=== PATIENT | female | born 1945 | race African-American/Black ===

== ENCOUNTER 2020-11-28 09:19 | Outpatient (REF) | payer MEDICARE, SELFPAY ==
[2020-11-28 11:42] LABS: Hematocrit 40.4 % (37-47); Hemoglobin 12.6 g/dl (12.0-16.0)
[2020-11-28 11:58] LABS: Alanine Aminotransferase 19 U/L (0-31); Albumin Level 4.3 g/dL (3.5-5.0); Alkaline Phosphatase 87 U/L (39-117); Anion Gap 14 (12-20); Aspartate Amino Transferase 22 U/L (5-31); Bilirubin Direct 0.4 mg/dL (0.0-0.5); Bilirubin Total 0.8 mg/dL (0.0-1.0); Blood Urea Nitrogen 15 mg/dL (9-16); Calcium 8.8 mg/dL (8.4-10.2); Carbon Dioxide 27 mmol/L (22-29); Chloride 108 mmol/L (96-108); Estimated Glomerular Filt Rate 55; Glucose Fasting 107 mg/dL (60-99); Potassium 4.2 mmol/l (3.3-5.1); Sodium 145 mmol/L (135-145); Total Protein 7.7 g/dL (6.5-8.0)
[2020-11-29 09:53] LABS: LDL Cholesterol Direct 98 mg/dL (<100)
== END 2020-11-28 09:20 | disposition home or self-care (01) ==
LOC: HO.HMGCLDS 09:19
PROVIDERS: PCP Internal Medicine; Visit Provider Internal Medicine
DX: E78.9 Disorder of lipoprotein metabolism, unspecified (principal); I10 Essential (primary) hypertension
CPT/HCPCS: 36415; 80048; 80076; 83721; 85014; 85018

== ENCOUNTER 2021-04-02 08:54 | Outpatient (REF) | payer MEDICARE, SELFPAY ==
[2021-04-02 12:17] LABS: Alanine Aminotransferase 26 U/L (0-31); Albumin Level 4.3 g/dL (3.5-5.0); Alkaline Phosphatase 92 U/L (39-117); Anion Gap 15 (12-20); Aspartate Amino Transferase 26 U/L (5-31); Bilirubin Total 0.8 mg/dL (0.0-1.0); Blood Urea Nitrogen 17 mg/dL (9-16); Calcium 9.2 mg/dL (8.4-10.2); Carbon Dioxide 24 mmol/L (22-29); Chloride 109 mmol/L (96-108); Estimated Glomerular Filt Rate 46; Glucose Random 102 mg/dL (60-115); Potassium 4.6 mmol/L (3.3-5.1); Sodium 143 mmol/L (135-145); Total Protein 7.7 g/dL (6.5-8.0)
[2021-04-02 12:58] LABS: Estimated Average Glucose 108 mg/dL; Hemoglobin A1c % 5.4 %
== END 2021-04-02 08:55 | disposition home or self-care (01) ==
LOC: HO.HMGCLDS 08:54
PROVIDERS: PCP Internal Medicine; Visit Provider Internal Medicine
DX: E66.01 Morbid (severe) obesity due to excess calories (principal); E78.9 Disorder of lipoprotein metabolism, unspecified; I10 Essential (primary) hypertension
CPT/HCPCS: 36415; 80053; 83036

== ENCOUNTER 2021-07-16 11:53 | Outpatient (REF) | payer MEDICARE, SELFPAY ==
--- NOTE | ~2021-07-16 | MM_ITS ---
EXAMINATION: MM SCREENING DIGITAL BREAST TOMOSYNTHESIS, BILATERAL CLINICAL INFORMATION: Screening. Asymptomatic. The lifetime risk of breast cancer based on the Tyrer-Cuzick Model is 3%. COMPARISON: None (current study represents new baseline exam). TECHNIQUE: Digital breast tomosynthesis is performed in both the craniocaudal and mediolateral oblique views along with computer-aided detection (CAD). Synthesized 2D images are generated from the tomosynthesis. FINDINGS: There are scattered areas of fibroglandular density (ACR BI-RADS breast composition Category b). There are no significant masses, abnormal calcifications, or other abnormalities. There is fine fibronodular parenchymal pattern retroareolar region. There is no significant mass or architectural abnormality. No abnormal calcifications. Scattered round and vascular calcifications are present. The axilla and skin contours are unremarkable. MM/MM tomosynthesis screening BI IMPRESSION: No mammographic evidence of malignancy. ASSESSMENT: BI-RADS 2: Benign RECOMMENDATION: Routine annual mammography screening. This patient's information was entered into a reminder system with a target due date for their next mammogram.
== END 2021-07-16 11:54 | disposition home or self-care (01) ==
LOC: HO.MAMMO 11:53
PROVIDERS: PCP Internal Medicine; Visit Provider Internal Medicine
DX: Z12.31 Encounter for screening mammogram for malignant neoplasm of breast (principal)
CPT/HCPCS: 77063; 77067

== ENCOUNTER 2021-09-14 11:26 | Outpatient (REF) | payer MEDICARE, SELFPAY ==
[2021-09-14 14:18] LABS: Alanine Aminotransferase 15 U/L (0-31); Albumin Level 4.2 g/dL (3.5-5.0); Alkaline Phosphatase 82 U/L (39-117); Anion Gap 14 (12-20); Aspartate Amino Transferase 20 U/L (5-31); Bilirubin Total 0.7 mg/dL (0.0-1.0); Blood Urea Nitrogen 8 mg/dL (9-16); Calcium 9.1 mg/dL (8.4-10.2); Carbon Dioxide 28 mmol/L (22-29); Chloride 108 mmol/L (96-108); Estimated Glomerular Filt Rate 56; Glucose Random 103 mg/dL (60-115); Potassium 4.2 mmol/L (3.3-5.1); Sodium 146 mmol/L (135-145); Total Protein 7.7 g/dL (6.5-8.0)
[2021-09-15 09:46] LABS: LDL Cholesterol Direct 133 mg/dL (<100)
== END 2021-09-14 11:27 | disposition home or self-care (01) ==
LOC: HO.HMGCLDS 11:26
PROVIDERS: PCP Internal Medicine; Visit Provider Internal Medicine
DX: E78.9 Disorder of lipoprotein metabolism, unspecified (principal); I10 Essential (primary) hypertension
CPT/HCPCS: 36415; 80053; 83721

== ENCOUNTER 2022-05-22 09:50 | Outpatient (REF) | payer MEDICARE, SELFPAY ==
[2022-05-22 11:35] LABS: MANUAL DIFF FLAG NO
[2022-05-22 11:38] LABS: Basophils Percent Auto 0.4 % (0-2); Eosinophils Absolute Auto 0.1 X10*3/uL (0.0-0.4); Eosinophils Percent Auto 1.1 % (0-4); Hematocrit 36.7 % (37.0-47.0); Hemoglobin 11.6 g/dl (12.0-16.0); Imm Gran Abs Auto 0.02 X10*3/uL (0.00-0.03); Imm Gran Pct Auto 0.4 % (0.0-0.4); Lymphocytes Absolute Auto 1.5 X10*3/uL (1.2-4.9); Lymphocytes Percent Auto 32.4 % (20-40); Mean Corpuscular HGB Conc 31.6 g/dl (31.0-35.0); Mean Corpuscular Hemoglobin 28.6 pg (27.0-33.0); Mean Corpuscular Volume 90.6 fL (80.0-98.0); Mean Platelet Volume 12.5 fL (9.4-12.3); Monocytes Absolute Auto 0.5 X10*3/uL (0.1-1.2); Monocytes Percent Auto 10.6 % (2-11); Neutrophils Absolute Auto 2.6 x10*3/uL (2.0-8.3); Neutrophils Percent Auto 55.1 % (45-73); Platelet Count 254 X10*3/uL (160-400); Red Blood Count 4.05 X10*6/uL (4.20-5.50); Red Cell Distribution Width 14.1 % (11.0-16.0); White Blood Count 4.7 X10*3/uL (4.8-10.8)
[2022-05-22 11:55] LABS: Alanine Aminotransferase 18 U/L (0-31); Albumin Level 4.4 g/dL (3.5-5.0); Alkaline Phosphatase 85 U/L (39-117); Anion Gap 12 (12-20); Aspartate Amino Transferase 25 U/L (5-31); Bilirubin Total 0.8 mg/dL (0.0-1.0); Blood Urea Nitrogen 17 mg/dL (9-16); Calcium 9.2 mg/dL (8.4-10.2); Carbon Dioxide 23 mmol/L (22-29); Chloride 112 mmol/L (96-108); Estimated Glomerular Filt Rate 35; Glucose Random 109 mg/dL (60-115); Potassium 4.1 mmol/L (3.3-5.1); Sodium 143 mmol/L (135-145); Total Protein 7.9 g/dL (6.5-8.0)
[2022-05-24 05:02] LABS: LDL Cholesterol Direct 72 mg/dL (<100)
== END 2022-05-22 09:51 | disposition home or self-care (01) ==
LOC: HO.HMGCLDS 09:50
PROVIDERS: PCP Internal Medicine; Visit Provider Internal Medicine
DX: Z00.01 Encounter for general adult medical examination with abnormal findings (principal); I10 Essential (primary) hypertension; E78.9 Disorder of lipoprotein metabolism, unspecified
CPT/HCPCS: 36415; 80053; 83721; 84443; 85025

== ENCOUNTER 2022-06-21 10:41 | Outpatient (REF) | payer MEDICARE, SELFPAY ==
[2022-06-21 12:18] LABS: Anion Gap 16 (12-20); Blood Urea Nitrogen 12 mg/dL (9-16); Carbon Dioxide 21 mmol/L (22-29); Chloride 106 mmol/L (96-108); Estimated Glomerular Filt Rate 43; Potassium 3.9 mmol/L (3.3-5.1); Sodium 139 mmol/L (135-145)
== END 2022-06-21 10:42 | disposition home or self-care (01) ==
LOC: HO.HMGCLDS 10:41
PROVIDERS: PCP Internal Medicine; Visit Provider Internal Medicine
DX: R79.89 Other specified abnormal findings of blood chemistry (principal)
CPT/HCPCS: 36415; 80051; 82565; 84520

== ENCOUNTER → 2022-07-30 09:13 | Outpatient (BNVA) | payer MEDICARE, SELFPAY | PROVIDERS: PCP Internal Medicine; Visit Provider Nurse Practitioner Family | DX: Z12.11 Encounter for screening for malignant neoplasm of colon (principal) | CPT/HCPCS: 99202 ==

== ENCOUNTER 2022-11-27 09:09 | Day surgery (SDC) | payer MEDICARE, SELFPAY ==
[2022-11-22 14:13] VITALS: BMI 33.2
--- NOTE | 2022-11-26 14:21 | P.CONAN_ITS ---
Documented by User: Barb Garcia NP 11/26/22 14:21 HPI - Anesthesia Eval Consult details Narrative: 77yo F for Colonoscopy, screening PMFSH Active Problems Active Problems: All Active Problems (Updated 11/22/22 @ 14:16 by Rosina Garcia RN) Hypertension, essential (Acute) Lipid disorder (Acute) Breast screening (Acute) Morbid obesity (Acute) Swelling of both lower extremities (Acute) Uncontrolled hypertension (Acute) Encounter for general adult medical examination with abnormal findings (Acute) Balance disorder (Acute) Colon cancer screening (Acute) Elevated serum creatinine (Acute) Obesity due to excess calories (Acute) Past Medical History Medical History (Updated 11/22/22 @ 14:16 by Rosina Garcia RN) Elevated cholesterol Gastric ulcer HTN (hypertension) Surgical History Surgical History (Updated 11/22/22 @ 14:13 by Rosina Garcia RN) History of surgery Social History Social History Housing: Apartment Alcohol intake: current Alcohol intake frequency: 3 or more drinks per day Alcohol type: beer Patient Tobacco Use Status: Former Tobacco user Quit Date: age 27 Tobacco use type: Cigarette Years Smoked: 1 e-Cigarette/Vaping Use: Never Used Use of substances other than those prescribed or required for medical reasons: No Have you been hit, kicked, punched, or otherwise hurt by someone within the past year? If so, by whom?: No Are you DNR?: No Advance Directives: No Advance Directives Information Provided: Yes (brochure mailed) Advance Directives on File: No Recently lost weight without trying: No Eating poorly because of decreased appetite: No Nutrition Risks: Surgical patient >75years Poor oral hygiene: No Current occupational status: retired Cognitive needs: No Hearing needs: No Vision needs: Yes Meds Allergies Allergy/AdvReac Type Severity Reaction Status Date / Time No Known Allergies Allergy Verified 08/21/22 10:12 Exam Exam Date and Time: November 26, 2022 1421 Height,Weight and Vital Signs: Height 5 ft 7 in Weight 96.162 kg Pertinent Lab Results Pertinent Lab Results: Laboratory Tests 05/22/22 06/21/22 09:55 10:45 WBC 4.7 L Hgb 11.6 L Hct 36.7 L Plt Count 254 Sodium 139 Potassium 3.9 Chloride 106 Carbon Dioxide 21 L BUN 12 Creatinine 1.21 Assessment and Plan Assessment Anesthesia Assessment: Chart Reviewed Documented by User: Swathi Thao MD 11/27/22 10:55 COUNT INCLUDES THE [facility] Past Medical History Medical History (Updated 11/22/22 @ 14:16 by Rosina Garcia RN) Elevated cholesterol Gastric ulcer HTN (hypertension) Family History Family history of problems with anesthesia: No Surgical History Surgical History (Updated 11/22/22 @ 14:13 by Rosina Garcia RN) History of surgery History of Problems with Anesthesia: No Social History Social History Housing: Apartment Alcohol intake: current Alcohol intake frequency: 3 or more drinks per day Alcohol type: beer Patient Tobacco Use Status: Former Tobacco user Quit Date: age 27 Tobacco use type: Cigarette Years Smoked: 1 e-Cigarette/Vaping Use: Never Used Use of substances other than those prescribed or required for medical reasons: No Have you been hit, kicked, punched, or otherwise hurt by someone within the past year? If so, by whom?: No Are you DNR?: No Advance Directives: No Advance Directives Information Provided: Yes (brochure mailed) Advance Directives on File: No Recently lost weight without trying: No Eating poorly because of decreased appetite: No Nutrition Risks: Surgical patient >75years Poor oral hygiene: No Current occupational status: retired Cognitive needs: No Hearing needs: No Vision needs: Yes Meds Allergies Allergy/AdvReac Type Severity Reaction Status Date / Time No Known Allergies Allergy Verified 08/21/22 10:12 Exam Airway Mallampati Class: III (Multiple missing teeth nithing loose, small mouth opening) TM Dist: >3cm Neck ROM: Full Heart: rrr Lungs: cta Assessment and Plan Assessment Anesthesia Assessment: Anesthesia Plan Discussed and Chart Reviewed Final Anesthetic Review Family History of Problems with Anesthesia: No History of Problems with Anesthesia: No NPO: Yes ASA Class: III Final Preanesthetic Review: No Changes in Pt Med Stat, Meds/Allgs Chart Reviewed and Consent Obtained/Reviewed Patient Risk: Intermediate Procedure Risk: Intermediate Anesthetic Plan Anesthetic Plan: MAC:
[2022-11-27 09:43] VITALS: BMI 32.8
[2022-11-27 09:44] VITALS: BP 187/100; PULSE 92; RESP 18; TEMP 37; O2SAT 97
[2022-11-27] MEDS: Lactated Ringers 1,000 ML 100 ML IVCONT (10:04)
--- NOTE | 2022-11-27 11:40 | MHC.SHP ---
Pre-Procedural Eval Section A Date of Service: 11/27/22 Section B Chief Complaint: Encounter for screening for malignant neoplasm of Relevant Family History (Specify if Yes): No Relevant Social History: None Present Medications: see Short Stay Collaborative assessment Medical History: Significant History (Elevated cholesterol Gastric ulcer HTN (hypertension)) History of Previous Operations: Relevant previous surgery/procedure and date(s) (History of surgery) Allergies: Allergies Allergy/AdvReac Type Severity Reaction Status Date / Time No Known Allergies Allergy Verified 08/21/22 10:12 Review of Systems Sugical H&P ROS: Negative: Constitution, Cardiovascular, Respiratory, Neurological, Psychiatric, Hem-Onc, Allergic/Immunologic, Gastrointestinal, Genitourinary, Musculoskeletal, Integumentary, Endocrine and Eyes/Ears/Nose/Throat Exam Surgical H&P Exam: Normal: HEENT, Normal: Heart, Normal: Lungs, Normal: Extremities, Normal: Abdomen, Normal: Skin and Normal: Neurological Plan Diagnosis/Plan: Unchanged I have reviewed the history and physical and performed a pertinent physical examination on my patient. No changes have occurred unless specified. Time Spent With Patient Time: Total time managing care of this patient today ____ minutes.
--- NOTE | 2022-11-27 11:42 | P.OP_ITS ---
Operative Note Operative Note Date of Service: 11/27/22 Narrative: Operative Information Procedure Description: Colonoscopy Indication: screening Anesthesia: MAC COLONOSCOPY Instrument: Olympus variable stiffness pediatric scope 190L Colonoscopy Monitoring: Vital signs and clinical assessment, continuous EKG monitoring, Pulse oximetry, Carbon Dioxide monitoring and blood pressure monitoring were done throughout the procedure. Colon withdrawal time was 8 minutes. Procedure: The patient was placed in the left lateral decubitis position and pre-procedure medications were administered. After a digital rectal examination of the ano-rectum, the video colonoscope was inserted into the rectum and advanced through the colon to the cecum/TI. The colonoscope was slowly withdrawn in a retrograde panoramic fashion and the colon mucosa was carefully examined including a retroflexed view of the rectum. Findings and interventions are described below. Procedure Difficulty: difficult due to looping Findings: Terminal Ileum-not intubated due to looping Cecum:normal Ascending Colon: normal Transverse Colon -normal Descending Colon:normal Sigmoid Colon: mild diverticulosis Rectum: Retroflexion with small internal hemorrhoids, grade I Anorectum - normal Colon preparation: [place] Bowel Preparation Scale Right colon; 2 Transverse colon: 2 Left colon; 2 (0 = Unprepared colon segment with mucosa not seen due to solid stool that cannot be cleared. 1 = Portion of mucosa of the colon segment seen, but other areas of the colon segment not well seen due to staining, residual stool and/or opaque liquid. 2 = Minor amount of residual staining, small fragments of stool and/or opaque liquid, but mucosa of colon segment seen well. 3 = Entire mucosa of colon segment seen well with no residual staining, small fragments of stool or opaque liquid) Impression and Post Procedure Diagnosis: internal hemorrhoids diverticular disease Plan: High fiber diet leaflet Avoid straining at stool, epsom salts and sitz bath, anusol supps or cream Repeat Colonoscopy in 10 years if health allows otherwise this is her last screening colonoscopy. Can be earlier if clinically indicated for other reasons Above findings were reviewed with the patient and relevant handouts were provided if indicated.
[2022-11-27 12:15] VITALS: BP 177/85; PULSE 88; RESP 16; TEMP 36.2; O2SAT 98
[2022-11-27 12:30] VITALS: BP 164/81; PULSE 84; RESP 16; TEMP 36.2; O2SAT 98
== END 2022-11-27 13:05 | disposition home or self-care (01) ==
PROVIDERS: PCP Internal Medicine; Visit Provider Internal Medicine Gastroenterology
PROC: 0DJD8ZZ Inspection of Lower Intestinal Tract, Via Natural or Artificial Opening Endoscopic (ICD-10-PCS; CPT 45378; principal; 2022-11-27 11:10)
DX: Z12.11 Encounter for screening for malignant neoplasm of colon (principal); K57.30 Diverticulosis of large intestine without perforation or abscess without bleeding; K64.0 First degree hemorrhoids; Z87.11 Personal history of peptic ulcer disease; I10 Essential (primary) hypertension; E78.00 Pure hypercholesterolemia, unspecified; Z79.899 Other long term (current) drug therapy; Z87.891 Personal history of nicotine dependence
CPT/HCPCS: G0121; J2405

== ENCOUNTER 2022-12-04 12:12 | Outpatient (REF) | payer MEDICARE, SELFPAY ==
[2022-12-04 14:01] LABS: MANUAL DIFF FLAG NO
[2022-12-04 14:09] LABS: Basophils Percent Auto 0.5 % (0-2); Eosinophils Absolute Auto 0.1 X10*3/uL (0.0-0.4); Eosinophils Percent Auto 2.4 % (0-4); Hematocrit 37.5 % (37.0-47.0); Hemoglobin 11.9 g/dl (12.0-16.0); Imm Gran Abs Auto 0.01 X10*3/uL (0.00-0.03); Imm Gran Pct Auto 0.2 % (0.0-0.4); Lymphocytes Absolute Auto 1.7 X10*3/uL (1.2-4.9); Lymphocytes Percent Auto 29.7 % (20-40); Mean Corpuscular HGB Conc 31.7 g/dl (31.0-35.0); Mean Corpuscular Hemoglobin 27.2 pg (27.0-33.0); Mean Corpuscular Volume 85.6 fL (80.0-98.0); Mean Platelet Volume 13.2 fL (9.4-12.3); Monocytes Absolute Auto 0.5 X10*3/uL (0.1-1.2); Monocytes Percent Auto 8.9 % (2-11); Neutrophils Absolute Auto 3.4 x10*3/uL (2.0-8.3); Neutrophils Percent Auto 58.3 % (45-73); Platelet Count 229 X10*3/uL (160-400); Red Blood Count 4.38 X10*6/uL (4.20-5.50); Red Cell Distribution Width 14.2 % (11.0-16.0); White Blood Count 5.8 X10*3/uL (4.8-10.8)
[2022-12-04 14:32] LABS: Alanine Aminotransferase 20 U/L (0-31); Albumin Level 4.3 g/dL (3.5-5.0); Alkaline Phosphatase 98 U/L (39-117); Anion Gap 11 (12-20); Aspartate Amino Transferase 21 U/L (5-31); Bilirubin Total 0.8 mg/dL (0.0-1.0); Blood Urea Nitrogen 16 mg/dL (9-16); Calcium 9.4 mg/dL (8.4-10.2); Carbon Dioxide 30 mmol/L (22-29); Chloride 104 mmol/L (96-108); Estimated Glomerular Filt Rate 49; Glucose Random 99 mg/dL (60-115); Potassium 4.1 mmol/L (3.3-5.1); Sodium 141 mmol/L (135-145); Total Protein 7.7 g/dL (6.5-8.0)
[2022-12-05 16:03] LABS: LDL Cholesterol Direct 64 mg/dL (<100)
== END 2022-12-04 12:13 | disposition home or self-care (01) ==
LOC: HO.HMGCLDS 12:12
PROVIDERS: PCP Internal Medicine; Visit Provider Internal Medicine
DX: E66.09 Other obesity due to excess calories (principal); I10 Essential (primary) hypertension; R79.89 Other specified abnormal findings of blood chemistry; E78.5 Hyperlipidemia, unspecified
CPT/HCPCS: 36415; 80053; 83721; 85025

== ENCOUNTER 2023-08-08 13:11 | Outpatient (AMB) | payer MEDICARE, SELFPAY ==
--- NOTE | 2023-08-08 13:21 | MHC.PC.OV ---
Vital Signs 08/08/23 13:22 Height 5 ft 7 in Weight 203 lb 4 oz BMI 31.8 BP 150/62 H Blood Pressure Location Rt brachial Position Sitting Pulse 100 Pulse Source Pulse Oximeter Pulse Oximetry (%) 97 Oxygen Delivery Method Room Air Intake Visit Reasons: Annual Physical Allergies No Known Allergies Allergy (Verified 08/08/23 13:22) Medication List - Last Reconciled 08/08/23 by Silvia Marcial MD atorvastatin 10 mg PO DAILY 90 days bisacodyl (Dulcolax (bisacodyl)) 10 mg (2 x 5 mg) PO ONCE 1 day [Blood pressure monitor As directed] irbesartan-hydrochlorothiazide 300-12.5 mg 1 tab PO DAILY metoprolol succinate ER 100 mg PO DAILY 90 days nifedipine ER 90 mg PO DAILY 90 days Tobacco use date assessed: 08/08/23 Fall risk assessment: 1 Fall in past year Last assessed Fall Risk: 08/08/23 Dental Screening Dental Screen Date: 08/08/23 Did you have a dental visit in the last 12 months?: No Did you have a dental problem in the last 6 months where you did not have access to dental care?: No Was dental information given to patient?: Patient declined HPI Annual Physical HPI Details Patient is 78 year female came in today for physical examination Due for mammogram order placed Patient has not seen OBGYN in years, I have placed a referral for evaluation Colonoscopy appointment was made last year Blood pressure is slightly elevated today was 110 x 64 last visit review continue to observe Medications refills sent. BMI is 31.8 need to lose weight Patient is also complaining of feeling her burning at the bottom of her feet Her balance was off today She will need EMG nerve conduction study down the road patient does not drive and is dependent on her daughter Labs to be done today Follow-up 3 months [facility] Medical History Gastric ulcer Elevated cholesterol HTN (hypertension) Surgical History Hx of colonoscopy History of surgery Social History Housing: Apartment Alcohol intake: current Alcohol intake frequency: 3 or more drinks per day Alcohol type: beer Patient Tobacco Use Status: Former Tobacco user Quit Date: age 27 Tobacco use type: Cigarette Years Smoked: 1 e-Cigarette/Vaping Use: Never Used service: No Current occupational status: retired Cognitive needs: No Hearing needs: No Vision needs: Yes Questionnaire Thrive Questionnaire Date Thrive assessed: 04/04/23 AUDIT C Alcohol Use Questionnaire (AUDIT-C) 1. How often do you have a drink containing alcohol?: Never 3. How often do you have six or more drinks on one occasion?: Never Total Score: 0 Score Reviewed/Action Taken: Yes SAY-7 AMB Questionnaire SAY-7 Date SAY - 7 assessed: 04/04/23 Source: Developed by Drs. Juan Dooley, Nadya Oshea, Nico Rothman and colleagues, with an educational renée from [employer]. Review of Systems Const Denies chills, Denies fever(s) and Denies headache(s) Eyes Denies blurry vision ENT Denies headache(s), Denies nasal discharge, Denies nasal obstruction, Denies odynophagia and Denies sinus pain Card Denies chest pain at rest and Denies chest pain with activity Resp Denies cough and Denies hemoptysis GI Denies diarrhea, Denies odynophagia, Denies vomiting and Denies hematemesis Reports as per HPI Musc Denies abnormal gait Skin/Breast Reports as per HPI Neuro Denies Neuro-related abnormal movements, Denies Abnormal speech present, Denies abnormal gait and Denies headache(s) Psych Denies mood swings and Denies paranoia Endo Reports as per HPI Félix/Lymph Reports as per HPI Aller/Immun Reports as per HPI Physical exam (Primary Care) Vital Signs: Last Vital Signs Pulse 100 08/08/23 13:22 BP 150/62 H 08/08/23 13:22 Pulse Ox 97 08/08/23 13:22 Oxygen Delivery Method Room Air 08/08/23 13:22 BMI result Body Mass Index 31.8 Tobacco/Smoking Status: Tobacco use Status Tobacco use date assessed 08/08/23 08/08/23 13:24 Patient Tobacco Use Status Former Tobacco user 08/08/23 13:24 Tobacco use type Cigarette 08/08/23 13:24 e-Cigarette/Vaping Use Never Used 08/08/23 13:24 Thrive Assessment: Date of Thrive Assessment Date Thrive assessed 04/04/23 08/08/23 13:24 Const General: cooperative, comfortable and no acute distress Orientation/consciousness: patient oriented x3 HENMT Head: Yes normocephalic and Yes atraumatic Eyes General: appearance normal, both eyes and all related structures Pupils: Equal, round and reactive pupils present EOM: EOMs intact bilaterally Neck Neck: Yes supple and No lymphadenopathy Thyroid: Thyroid normal Lymphatic: no lymphadenopathy noted Chest Breast/axilla palpation: normal palpation of the breasts Resp Effort & Inspection: normal respiratory effort and able to speak in complete sentences Auscultation: clear to auscultation bilaterally Cardio Heart sounds: S1 normal heart sound present and S2 normal heart sound present GI Palpation (GI): Soft to palpation and nontender Auscultation: normal bowel sounds General: Yes no CVA tenderness Back/Spine/Pelvis Back: no CVA tenderness Skin General skin exam: elasticity normal and turgor normal Neuro General: patient oriented x3 and gait normal Cranial nerves: Yes Equal, round and reactive pupils present Speech: No Abnormal speech present Extrem General: Yes normal exam except as noted and No edema Assessment and Plan Assessment & Plan (1) Encounter for general adult medical examination with abnormal findings: Code(s): Z00.01 - Encounter for general adult medical examination with abnormal findings (2) Lipid disorder: Code(s): E78.9 - Disorder of lipoprotein metabolism, unspecified (3) Hypertension, essential: Code(s): I10 - Essential (primary) hypertension (4) Obesity due to excess calories: Code(s): E66.09 - Other obesity due to excess calories Qualifiers: Body mass index: BMI 31.0-31.9 Obesity classification: adult class 1 (BMI 30 - 34.9) Serious obesity comorbidity presence: with serious comorbidity Qualified Code(s): E66.09 - Other obesity due to excess calories; Z68.31 - Body mass index [BMI] 31.0-31.9, adult (5) Paresthesia of lower extremity: Code(s): R20.2 - Paresthesia of skin Plan Patient is 78 year female came in today for physical examination Due for mammogram order placed Patient has not seen OBGYN in years, I have placed a referral for evaluation Colonoscopy appointment was made last year Blood pressure is slightly elevated today was 110 x 64 last visit review continue to observe Medications refills sent. BMI is 31.8 need to lose weight Patient is also complaining of feeling her burning at the bottom of her feet Her balance was off today She will need EMG nerve conduction study down the road patient does not drive and is dependent on her daughter Labs to be done today Follow-up 3 months Orders: Orders Vitamin B12 Today R20.2 - Paresthesia of skin Complete Blood Count Auto Diff Today E66.09 - Other obesity due to excess calories, E78.9 - Disorder of lipoprotein metabolism, unspecified, I10 - Essential (primary) hypertension, Z00.01 - Encounter for general adult medical examination with abnormal findings Comprehensive Met. Panel Today E78.9 - Disorder of lipoprotein metabolism, unspecified, I10 - Essential (primary) hypertension, Z00.01 - Encounter for general adult medical examination with abnormal findings LDL Cholesterol Direct Today E78.9 - Disorder of lipoprotein metabolism, unspecified, I10 - Essential (primary) hypertension, Z00.01 - Encounter for general adult medical examination with abnormal findings MM tomosynthesis screening BI Today Z12.31 - Encounter for screening mammogram for malignant neoplasm of breast Vitamin D 25-OH (D2 and D3) Today R20.2 - Paresthesia of skin Referrals [employer] Referral Z01.419 - Encounter for gynecological examination (general) (routine) without abnormal findings Medications: Refilled nifedipine ER 90 mg PO DAILY 90 tabs 1RF 90 days metoprolol succinate ER 100 mg PO DAILY 90 tabs 1RF 90 days I10 - Essential (primary) hypertension irbesartan-hydrochlorothiazide 300-12.5 mg 1 tab PO DAILY 90 tabs 1RF I10 - Essential (primary) hypertension atorvastatin 10 mg PO DAILY 90 tabs 1RF 90 days E78.9 - Disorder of lipoprotein metabolism, unspecified Coding Level of Care Code Est Pt Prev Care >65y(75394) Diagnoses Encounter for general adult medical examination with abnormal findings Z00.01 Lipid disorder E78.9 Hypertension, essential I10 Class 1 obesity due to excess calories with serious comorbidity and body mass index (BMI) of 31.0 to 31.9 in adult E66.09; Z68.31 Body mass index: BMI 31.0-31.9 Obesity classification: adult class 1 (BMI 30 - 34.9) Serious obesity comorbidity presence: with serious comorbidity Paresthesia of lower extremity R20.2
[2023-08-08 13:22] VITALS: BP 150/62; PULSE 100; O2SAT 97; BMI 31.8
== END 2023-08-08 13:39 | disposition home or self-care (01) ==
PROVIDERS: Visit Provider Internal Medicine
DX: Z00.00 Encounter for general adult medical examination without abnormal findings (principal); I10 Essential (primary) hypertension; Z68.31 Body mass index [BMI] 31.0-31.9, adult; E78.9 Disorder of lipoprotein metabolism, unspecified; E66.09 Other obesity due to excess calories; R20.2 Paresthesia of skin
CPT/HCPCS: 99397

== ENCOUNTER 2023-08-08 13:41 | Outpatient (REF) | payer MEDICARE, SELFPAY ==
[2023-08-08 15:57] LABS: MANUAL DIFF FLAG NO
[2023-08-08 16:07] LABS: Basophils Percent Auto 0.3 % (0-2); Eosinophils Percent Auto 0.7 % (0-4); Hemoglobin 11.2 g/dl (12.0-16.0); Imm Gran Abs Auto 0.07 X10*3/uL (0.00-0.03); Imm Gran Pct Auto 1.1 % (0.0-0.4); Lymphocytes Absolute Auto 1.8 X10*3/uL (1.2-4.9); Lymphocytes Percent Auto 29.9 % (20-40); Mean Corpuscular Hemoglobin 28.1 pg (27.0-33.0); Mean Corpuscular Volume 87.7 fL (80.0-98.0); Mean Platelet Volume 11.1 fL (9.4-12.3); Monocytes Absolute Auto 0.5 X10*3/uL (0.1-1.2); Monocytes Percent Auto 7.7 % (2-11); Neutrophils Absolute Auto 3.7 x10*3/uL (2.0-8.3); Neutrophils Percent Auto 60.3 % (45-73); Platelet Count 345 X10*3/uL (160-400); Red Blood Count 3.99 X10*6/uL (4.20-5.50); White Blood Count 6.1 X10*3/uL (4.8-10.8)
[2023-08-08 16:32] LABS: Alanine Aminotransferase 11 U/L (0-31); Alkaline Phosphatase 79 U/L (39-117); Anion Gap 14 (12-20); Aspartate Amino Transferase 18 U/L (5-31); Bilirubin Total 0.6 mg/dL (0.0-1.0); Blood Urea Nitrogen 14 mg/dL (9-16); Calcium 9.1 mg/dL (8.4-10.2); Carbon Dioxide 20 mmol/L (22-29); Chloride 109 mmol/L (96-108); Estimated Glomerular Filt Rate 55; Glucose Random 121 mg/dL (60-115); Potassium 3.4 mmol/L (3.3-5.1); Sodium 140 mmol/L (135-145)
[2023-08-08 16:50] LABS: Vitamin B12 296 pg/mL (200-900)
[2023-08-09 22:28] LABS: LDL Cholesterol Direct 63 mg/dL (<100)
[2023-08-14 16:57] LABS: Vitamin D 25-OH, D2 <4 ng/mL; Vitamin D 25-OH, D3 8 ng/mL; Vitamin D 25-OH, Total 8 ng/mL (30-100)
== END 2023-08-08 13:42 | disposition home or self-care (01) ==
LOC: HO.HMGCLDS 13:41
PROVIDERS: PCP Internal Medicine; Visit Provider Internal Medicine
DX: Z00.01 Encounter for general adult medical examination with abnormal findings (principal); E66.09 Other obesity due to excess calories; E78.9 Disorder of lipoprotein metabolism, unspecified; I10 Essential (primary) hypertension; R20.2 Paresthesia of skin
CPT/HCPCS: 36415; 80053; 82306; 82607; 83721; 85025

== ENCOUNTER 2023-12-12 10:11 | Outpatient (AMB) | payer MEDICARE, SELFPAY ==
[2023-12-12 10:19] VITALS: BP 152/76; PULSE 98; O2SAT 95; BMI 30.7
--- NOTE | 2023-12-12 10:19 | A.OFFPC_ITS ---
Vital Signs 12/12/23 10:19 Height 5 ft 7 in Weight 196 lb 4 oz BMI 30.7 BP 152/76 H Blood Pressure Location Lt brachial Position Sitting Pulse 98 Pulse Source Pulse Oximeter Pulse Oximetry (%) 95 Oxygen Delivery Method Room Air Intake Visit Reasons: 3 month fu Allergies No Known Allergies Allergy (Verified 12/12/23 10:21) Medication List - Last Reconciled 12/12/23 by Silvia Marcial MD atorvastatin 10 mg PO DAILY 90 days [Blood pressure monitor As directed] cholecalciferol (vitamin D3) 25 mcg PO DAILY 90 days irbesartan-hydrochlorothiazide 300-12.5 mg 1 tab PO DAILY metoprolol succinate ER 100 mg PO DAILY 90 days Tobacco use date assessed: 12/12/23 Fall risk assessment: 1 Fall in past year Last assessed Fall Risk: 12/12/23 Dental Screening Dental Screen Date: 12/12/23 Did you have a dental visit in the last 12 months?: No Did you have a dental problem in the last 6 months where you did not have access to dental care?: No Was dental information given to patient?: Patient declined HPI 3 month fu HPI Details Patient is 78-year-old came today follow-up appointment Blood pressure to be elevated patient is metoprolol 1 mg daily and irbesartan hydrochlorothiazide 12.5 mg Patient says that she was rushing to come here that is why it is elevated She has a nurse come over at home and blood pressure is being monitored, it usually runs like 110 systolic Patient is to do labs Continue atorvastatin 10 mg And continue vitamin-D supplement BMI is elevated patient is having difficulty losing weight PFSH Medical History Gastric ulcer Elevated cholesterol HTN (hypertension) Surgical History Hx of colonoscopy History of surgery Social History Housing: Apartment Alcohol intake: current Alcohol intake frequency: 3 or more drinks per day Alcohol type: beer Patient Tobacco Use Status: Former Tobacco user Quit Date: age 27 Tobacco use type: Cigarette Years Smoked: 1 e-Cigarette/Vaping Use: Never Used service: No Current occupational status: retired Cognitive needs: No Hearing needs: No Vision needs: Yes Questionnaire Thrive Questionnaire Date Thrive assessed: 04/04/23 AUDIT C Alcohol Use Questionnaire (AUDIT-C) 1. How often do you have a drink containing alcohol?: Never 3. How often do you have six or more drinks on one occasion?: Never Total Score: 0 Score Reviewed/Action Taken: Yes SAY-7 AMB Questionnaire SAY-7 Date SAY - 7 assessed: 04/04/23 Source: Developed by Drs. Juan Dooley, Nadya Oshea, Nico Rothman and colleagues, with an educational renée from [employer]. Review of Systems Const Denies chills and Denies fever(s) ENT Denies epistaxis and Denies nasal discharge Card Denies chest pain Resp Denies chest congestion, Denies cough and Denies hemoptysis GI Denies diarrhea and Denies nausea Skin/Breast Denies rash Neuro Reports no additional complaints Psych Reports no additional complaints Endo Reports no additional complaints Physical exam (Primary Care) Vital Signs: Last Vital Signs Pulse 98 12/12/23 10:19 BP 152/76 H 12/12/23 10:19 Pulse Ox 95 12/12/23 10:19 Oxygen Delivery Method Room Air 12/12/23 10:19 BMI result Body Mass Index 30.7 Tobacco/Smoking Status: Tobacco use Status Tobacco use date assessed 12/12/23 12/12/23 10:22 Patient Tobacco Use Status Former Tobacco user 12/12/23 10:22 Tobacco use type Cigarette 12/12/23 10:22 e-Cigarette/Vaping Use Never Used 12/12/23 10:22 Thrive Assessment: Date of Thrive Assessment Date Thrive assessed 04/04/23 12/12/23 10:22 Const General: cooperative, comfortable and no acute distress Orientation/consciousness: patient oriented x3 [facility] Head: Yes normocephalic Eyes General: appearance normal, both eyes and all related structures Neck Neck: Yes supple Resp Effort & Inspection: normal respiratory effort, no cough and no stridor Cardio Rhythm: regular rhythm Heart sounds: S1 normal heart sound present and S2 normal heart sound present Skin General skin exam: turgor normal Neuro General: patient oriented x3, tone normal and moves all extremities Extrem Right lower extremity: no edema Left lower extremity: no edema Assessment and Plan Assessment & Plan (1) Morbid obesity: Code(s): E66.01 - Morbid (severe) obesity due to excess calories (2) Lipid disorder: Code(s): E78.9 - Disorder of lipoprotein metabolism, unspecified (3) Hypertension, essential: Code(s): I10 - Essential (primary) hypertension (4) Obesity due to excess calories: Code(s): E66.09 - Other obesity due to excess calories Qualifiers: Body mass index: BMI 31.0-31.9 Obesity classification: adult class 1 (BMI 30 - 34.9) Serious obesity comorbidity presence: with serious comorbidity Qualified Code(s): E66.09 - Other obesity due to excess calories; Z68.31 - Body mass index [BMI] 31.0-31.9, adult (5) Vitamin D deficiency: Code(s): E55.9 - Vitamin D deficiency, unspecified Plan Patient is 78-year-old came today follow-up appointment Blood pressure to be elevated patient is metoprolol 1 mg daily and irbesartan hydrochlorothiazide 12.5 mg Patient says that she was rushing to come here that is why it is elevated She has a nurse come over at home and blood pressure is being monitored, it usually runs like 110 systolic Patient is to do labs Continue atorvastatin 10 mg And continue vitamin-D supplement BMI is elevated patient is having difficulty losing weight Orders: Orders Comprehensive Met. Panel Today E66.01 - Morbid (severe) obesity due to excess calories, I10 - Essential (primary) hypertension LDL Cholesterol Direct Today E66.01 - Morbid (severe) obesity due to excess calories, I10 - Essential (primary) hypertension Complete Blood Count Auto Diff Today E66.01 - Morbid (severe) obesity due to excess calories, I10 - Essential (primary) hypertension Coding Level of Care Code Est Pt Level 4 (27272) Diagnoses Morbid obesity E66.01 Lipid disorder E78.9 Hypertension, essential I10 Class 1 obesity due to excess calories with serious comorbidity and body mass index (BMI) of 31.0 to 31.9 in adult E66.09; Z68.31 Body mass index: BMI 31.0-31.9 Obesity classification: adult class 1 (BMI 30 - 34.9) Serious obesity comorbidity presence: with serious comorbidity Vitamin D deficiency E55.9
== END 2023-12-12 12:50 | disposition home or self-care (01) ==
PROVIDERS: PCP Internal Medicine; Visit Provider Internal Medicine
DX: E66.01 Morbid (severe) obesity due to excess calories (principal); E78.9 Disorder of lipoprotein metabolism, unspecified; I10 Essential (primary) hypertension; E66.09 Other obesity due to excess calories; Z68.31 Body mass index [BMI] 31.0-31.9, adult; E55.9 Vitamin D deficiency, unspecified
CPT/HCPCS: 99214

== ENCOUNTER 2023-12-12 10:32 | Outpatient (REF) | payer MEDICARE, SELFPAY ==
[2023-12-12 13:17] LABS: MANUAL DIFF FLAG NO
[2023-12-12 13:44] LABS: Basophils Percent Auto 0.5 % (0-2); Eosinophils Absolute Auto 0.1 X10*3/uL (0.0-0.4); Eosinophils Percent Auto 0.9 % (0-4); Hematocrit 35.1 % (37.0-47.0); Hemoglobin 11.3 g/dl (12.0-16.0); Imm Gran Abs Auto 0.02 X10*3/uL (0.00-0.03); Imm Gran Pct Auto 0.3 % (0.0-0.4); Lymphocytes Absolute Auto 1.7 X10*3/uL (1.2-4.9); Lymphocytes Percent Auto 25.2 % (20-40); Mean Corpuscular HGB Conc 32.2 g/dl (31.0-35.0); Mean Corpuscular Hemoglobin 28.5 pg (27.0-33.0); Mean Corpuscular Volume 88.6 fL (80.0-98.0); Mean Platelet Volume 11.6 fL (9.4-12.3); Monocytes Absolute Auto 0.8 X10*3/uL (0.1-1.2); Monocytes Percent Auto 11.3 % (2-11); Neutrophils Absolute Auto 4.1 x10*3/uL (2.0-8.3); Neutrophils Percent Auto 61.8 % (45-73); Platelet Count 343 X10*3/uL (160-400); Red Blood Count 3.96 X10*6/uL (4.20-5.50); Red Cell Distribution Width 14.5 % (11.0-16.0); White Blood Count 6.6 X10*3/uL (4.8-10.8)
[2023-12-12 13:58] LABS: Alanine Aminotransferase 17 U/L (0-31); Albumin Level 3.8 g/dL (3.5-5.0); Alkaline Phosphatase 82 U/L (39-117); Anion Gap 14 (12-20); Aspartate Amino Transferase 24 U/L (5-31); Bilirubin Total 0.7 mg/dL (0.0-1.0); Blood Urea Nitrogen 12 mg/dL (9-16); Calcium 9.3 mg/dL (8.4-10.2); Carbon Dioxide 25 mmol/L (22-29); Chloride 107 mmol/L (96-108); Estimated Glomerular Filt Rate > 60; Glucose Random 117 mg/dL (60-115); Potassium 3.9 mmol/L (3.3-5.1); Sodium 142 mmol/L (135-145)
[2023-12-15 06:53] LABS: LDL Cholesterol Direct 66 mg/dL (<100)
== END 2023-12-12 10:33 | disposition home or self-care (01) ==
LOC: HO.HMGCLDS 10:32
PROVIDERS: PCP Internal Medicine; Visit Provider Internal Medicine
DX: I10 Essential (primary) hypertension (principal); E66.01 Morbid (severe) obesity due to excess calories
CPT/HCPCS: 36415; 80053; 83721; 85025

== ENCOUNTER 2024-02-10 09:52 | Outpatient (AMB) | payer MEDICARE, SELFPAY ==
[2024-02-10 09:55] VITALS: BP 148/64; PULSE 88; O2SAT 96
--- NOTE | 2024-02-10 09:55 | MHC.PC.OV ---
Vital Signs 02/10/24 09:55 Height 5 ft 7 in Weight 191 lb 6 oz BMI 30.0 BP 148/64 H Blood Pressure Location Lt brachial Position Sitting Pulse 88 Pulse Source Pulse Oximeter Pulse Oximetry (%) 96 Oxygen Delivery Method Room Air Intake Visit Reasons: 6 month fu Allergies No Known Allergies Allergy (Verified 02/10/24 09:55) Medication List - Last Reconciled 02/10/24 by Silvia Marcila MD atorvastatin 10 mg PO DAILY 90 days [Blood pressure monitor As directed] cholecalciferol (vitamin D3) 25 mcg PO DAILY 90 days irbesartan-hydrochlorothiazide 300-12.5 mg 1 tab PO DAILY metoprolol succinate ER 100 mg PO DAILY 90 days Tobacco use date assessed: 02/10/24 Fall risk assessment: 1 Fall in past year Last assessed Fall Risk: 02/10/24 Dental Screening Dental Screen Date: 02/10/24 Did you have a dental visit in the last 12 months?: No Did you have a dental problem in the last 6 months where you did not have access to dental care?: No Was dental information given to patient?: No HPI 6 month fu HPI Details Patient is 78-year-old came today follow-up appointment Patient have chronic balance disorder due to longstanding paresthesia lower extremity Patient does not want have workup done Blood pressure is slightly elevated today at 01:48 systolic, patient is taking all her medications She is on irbesartan hydrochlorothiazide 300-12.5 mg, metoprolol 100 mg and nifedipine ER 90 mg daily Patient is to do labs, last set of labs was in November She does have a slightly low hemoglobin we will continue to monitor that Continue atorvastatin 10 mg And continue vitamin-D supplement BMI is elevated patient is having difficulty losing weight PFSH Medical History Gastric ulcer Elevated cholesterol HTN (hypertension) Surgical History Hx of colonoscopy History of surgery Social History Housing: Apartment Alcohol intake: current Alcohol intake frequency: 3 or more drinks per day Alcohol type: beer Patient Tobacco Use Status: Former Tobacco user Quit Date: age 27 Tobacco use type: Cigarette Years Smoked: 1 e-Cigarette/Vaping Use: Never Used service: No Current occupational status: retired Cognitive needs: No Hearing needs: No Vision needs: Yes Questionnaire Thrive Questionnaire Date Thrive assessed: 04/04/23 AUDIT C Alcohol Use Questionnaire (AUDIT-C) 1. How often do you have a drink containing alcohol?: Never 3. How often do you have six or more drinks on one occasion?: Never Total Score: 0 Score Reviewed/Action Taken: Yes SAY-7 AMB Questionnaire SAY-7 Date SAY - 7 assessed: 04/04/23 Source: Developed by Drs. Juan Dooley, Nadya Oshea, Nico Rothman and colleagues, with an educational renée from [employer]. Review of Systems Const Denies chills and Denies fever(s) ENT Denies epistaxis and Denies nasal discharge Card Denies chest pain Resp Denies chest congestion, Denies cough and Denies hemoptysis GI Denies diarrhea and Denies nausea Skin/Breast Denies rash Neuro Reports no additional complaints Psych Reports no additional complaints Endo Reports no additional complaints Physical exam (Primary Care) Vital Signs: Last Vital Signs Pulse 88 02/10/24 09:55 BP 148/64 H 02/10/24 09:55 Pulse Ox 96 02/10/24 09:55 Oxygen Delivery Method Room Air 02/10/24 09:55 BMI result Body Mass Index 30.0 Tobacco/Smoking Status: Tobacco use Status Tobacco use date assessed 02/10/24 02/10/24 10:02 Patient Tobacco Use Status Former Tobacco user 02/10/24 10:02 Tobacco use type Cigarette 02/10/24 10:02 e-Cigarette/Vaping Use Never Used 02/10/24 10:02 Thrive Assessment: Date of Thrive Assessment Date Thrive assessed 04/04/23 02/10/24 10:02 Const General: cooperative, comfortable and no acute distress Orientation/consciousness: patient oriented x3 HENMT Head: Yes normocephalic Eyes General: appearance normal, both eyes and all related structures Neck Neck: Yes supple Resp Effort & Inspection: normal respiratory effort, no cough and no stridor Cardio Rhythm: regular rhythm Heart sounds: S1 normal heart sound present and S2 normal heart sound present Skin General skin exam: turgor normal Neuro General: patient oriented x3, tone normal and moves all extremities Extrem Right lower extremity: no edema Left lower extremity: no edema Assessment and Plan Assessment & Plan (1) Hypertension, essential: Code(s): I10 - Essential (primary) hypertension (2) Vitamin D deficiency: Code(s): E55.9 - Vitamin D deficiency, unspecified (3) Lipid disorder: Code(s): E78.9 - Disorder of lipoprotein metabolism, unspecified (4) Obesity due to excess calories: Code(s): E66.09 - Other obesity due to excess calories Qualifiers: Body mass index: BMI 31.0-31.9 Obesity classification: adult class 1 (BMI 30 - 34.9) Serious obesity comorbidity presence: with serious comorbidity Qualified Code(s): E66.09 - Other obesity due to excess calories; Z68.31 - Body mass index [BMI] 31.0-31.9, adult (5) Low hemoglobin: Code(s): D64.9 - Anemia, unspecified (6) Paresthesia of lower extremity: Code(s): R20.2 - Paresthesia of skin (7) Balance disorder: Code(s): R26.89 - Other abnormalities of gait and mobility Plan Patient is 78-year-old came today follow-up appointment Patient have chronic balance disorder due to longstanding paresthesia lower extremity Patient does not want have workup done Blood pressure is slightly elevated today at 01:48 systolic, patient is taking all her medications She is on irbesartan hydrochlorothiazide 300-12.5 mg, metoprolol 100 mg and nifedipine ER 90 mg daily Patient is to do labs, last set of labs was in November She does have a slightly low hemoglobin we will continue to monitor that Continue atorvastatin 10 mg And continue vitamin-D supplement BMI is elevated patient is having difficulty losing weight Orders: Orders LDL Cholesterol Direct Today E55.9 - Vitamin D deficiency, unspecified, E66.01 - Morbid (severe) obesity due to excess calories, E78.9 - Disorder of lipoprotein metabolism, unspecified, I10 - Essential (primary) hypertension Comprehensive Met. Panel Today E55.9 - Vitamin D deficiency, unspecified, E66.01 - Morbid (severe) obesity due to excess calories, E78.9 - Disorder of lipoprotein metabolism, unspecified, I10 - Essential (primary) hypertension TSH reflex Free T4 Today E55.9 - Vitamin D deficiency, unspecified, E66.01 - Morbid (severe) obesity due to excess calories, E78.9 - Disorder of lipoprotein metabolism, unspecified, I10 - Essential (primary) hypertension Vitamin D 25-OH (D2 and D3) Today E55.9 - Vitamin D deficiency, unspecified, E66.01 - Morbid (severe) obesity due to excess calories, E78.9 - Disorder of lipoprotein metabolism, unspecified, I10 - Essential (primary) hypertension Complete Blood Count Auto Diff Today E55.9 - Vitamin D deficiency, unspecified, E66.01 - Morbid (severe) obesity due to excess calories, E78.9 - Disorder of lipoprotein metabolism, unspecified, I10 - Essential (primary) hypertension Medications: Refilled nifedipine ER 90 mg PO DAILY 90 tabs 1RF 90 days irbesartan-hydrochlorothiazide 300-12.5 mg 1 tab PO DAILY 90 tabs 1RF I10 - Essential (primary) hypertension metoprolol succinate ER 100 mg PO DAILY 90 tabs 1RF 90 days I10 - Essential (primary) hypertension atorvastatin 10 mg PO DAILY 90 tabs 1RF 90 days E78.9 - Disorder of lipoprotein metabolism, unspecified Coding Level of Care Code Est Pt Level 4 (36281) Diagnoses Hypertension, essential I10 Vitamin D deficiency E55.9 Lipid disorder E78.9 Class 1 obesity due to excess calories with serious comorbidity and body mass index (BMI) of 31.0 to 31.9 in adult E66.09; Z68.31 Body mass index: BMI 31.0-31.9 Obesity classification: adult class 1 (BMI 30 - 34.9) Serious obesity comorbidity presence: with serious comorbidity Low hemoglobin D64.9 Paresthesia of lower extremity R20.2 Balance disorder R26.89
== END 2024-02-10 10:41 | disposition home or self-care (01) ==
LOC: HO.HMGC 09:52
PROVIDERS: PCP Internal Medicine; Visit Provider Internal Medicine
DX: I10 Essential (primary) hypertension (principal); E55.9 Vitamin D deficiency, unspecified; E78.9 Disorder of lipoprotein metabolism, unspecified; E66.09 Other obesity due to excess calories; Z68.31 Body mass index [BMI] 31.0-31.9, adult; D64.9 Anemia, unspecified; R20.2 Paresthesia of skin; R26.89 Other abnormalities of gait and mobility
CPT/HCPCS: 99214

== ENCOUNTER 2024-02-10 10:13 | Outpatient (REF) | payer MEDICARE, SELFPAY ==
[2024-02-10 13:27] LABS: MANUAL DIFF FLAG NO
[2024-02-10 13:41] LABS: Basophils Percent Auto 0.6 % (0-2); Eosinophils Absolute Auto 0.1 X10*3/uL (0.0-0.4); Hematocrit 34.8 % (37.0-47.0); Hemoglobin 11.4 g/dl (12.0-16.0); Imm Gran Abs Auto 0.02 X10*3/uL (0.00-0.03); Imm Gran Pct Auto 0.4 % (0.0-0.4); Lymphocytes Absolute Auto 1.3 X10*3/uL (1.2-4.9); Lymphocytes Percent Auto 24.7 % (20-40); Mean Corpuscular HGB Conc 32.8 g/dl (31.0-35.0); Mean Corpuscular Hemoglobin 28.8 pg (27.0-33.0); Mean Corpuscular Volume 87.9 fL (80.0-98.0); Mean Platelet Volume 11.2 fL (9.4-12.3); Monocytes Absolute Auto 0.6 X10*3/uL (0.1-1.2); Monocytes Percent Auto 11.4 % (2-11); Neutrophils Absolute Auto 3.2 x10*3/uL (2.0-8.3); Neutrophils Percent Auto 61.9 % (45-73); Platelet Count 320 X10*3/uL (160-400); Red Blood Count 3.96 X10*6/uL (4.20-5.50); Red Cell Distribution Width 14.5 % (11.0-16.0); White Blood Count 5.2 X10*3/uL (4.8-10.8)
[2024-02-10 14:00] LABS: Alanine Aminotransferase 14 U/L (0-31); Albumin Level 3.8 g/dL (3.5-5.0); Alkaline Phosphatase 101 U/L (39-117); Anion Gap 15 (12-20); Aspartate Amino Transferase 19 U/L (5-31); Bilirubin Total 0.6 mg/dL (0.0-1.0); Blood Urea Nitrogen 9 mg/dL (9-16); Calcium 8.9 mg/dL (8.4-10.2); Carbon Dioxide 22 mmol/L (22-29); Chloride 108 mmol/L (96-108); Estimated Glomerular Filt Rate > 60; Glucose Random 115 mg/dL (60-115); Sodium 141 mmol/L (135-145)
[2024-02-10 14:18] LABS: TSH reflex Free T4 1.42 uIU/mL (0.32-4.0)
[2024-02-11 20:42] LABS: LDL Cholesterol Direct 103 mg/dL (<100)
[2024-02-15 16:33] LABS: Vitamin D 25-OH, D2 <4 ng/mL; Vitamin D 25-OH, D3 4 ng/mL; Vitamin D 25-OH, Total 4 ng/mL (30-100)
== END 2024-02-10 10:14 | disposition home or self-care (01) ==
LOC: HO.HMGCLDS 10:13
PROVIDERS: PCP Internal Medicine; Visit Provider Internal Medicine
DX: E55.9 Vitamin D deficiency, unspecified (principal); E78.9 Disorder of lipoprotein metabolism, unspecified; E66.01 Morbid (severe) obesity due to excess calories; I10 Essential (primary) hypertension
CPT/HCPCS: 36415; 80053; 82306; 83721; 84443; 85025

== ENCOUNTER 2024-05-12 09:54 | Outpatient (AMB) | payer MEDICARE, SELFPAY ==
[2024-05-12 09:56] VITALS: BP 138/80; PULSE 84; O2SAT 98; BMI 29.4
--- NOTE | 2024-05-12 09:56 | MHC.PC.OV ---
Vital Signs 05/12/24 09:56 Height 5 ft 7 in Weight 188 lb BMI 29.4 BP 138/80 Blood Pressure Location Lt brachial Position Sitting Pulse 84 Pulse Source Pulse Oximeter Pulse Oximetry (%) 98 Oxygen Delivery Method Room Air Intake Visit Reasons: 9 month fu Allergies No Known Allergies Allergy (Verified 05/12/24 09:56) Medication List - Last Reconciled 05/12/24 by Silvia Marcial MD atorvastatin 10 mg PO DAILY 90 days [Blood pressure monitor As directed] cholecalciferol (vitamin D3) 25 mcg PO DAILY 90 days irbesartan-hydrochlorothiazide 300-12.5 mg 1 tab PO DAILY metoprolol succinate ER 100 mg PO DAILY 90 days nifedipine ER 90 mg PO DAILY 90 days Tobacco use date assessed: 05/12/24 Fall risk assessment: No Falls in past year Last assessed Fall Risk: 05/12/24 Dental Screening Dental Screen Date: 05/12/24 Did you have a dental visit in the last 12 months?: Yes Did you have a dental problem in the last 6 months where you did not have access to dental care?: No Was dental information given to patient?: Patient has dentist HPI 9 month fu HPI Details Patient is 79-year-old came today follow-up appointment Patient have chronic balance disorder due to longstanding paresthesia lower extremity Patient does not want have workup done Blood pressure is much better compared to last time. She is on irbesartan hydrochlorothiazide 300-12.5 mg, metoprolol 100 mg and nifedipine ER 90 mg daily We are monitoring her hemoglobin which is running slightly low Continue atorvastatin 10 mg And continue vitamin-D supplement BMI is elevated patient is having difficulty losing weight Patient will return in August, labs to be repeated then. [facility] Medical History Gastric ulcer Elevated cholesterol HTN (hypertension) Surgical History Hx of colonoscopy History of surgery Social History Housing: Apartment Alcohol intake: current Alcohol intake frequency: 3 or more drinks per day Alcohol type: beer Patient Tobacco Use Status: Former Tobacco user Tobacco use type: Cigarette Years Smoked: 1 e-Cigarette/Vaping Use: Never Used service: No Current occupational status: retired Cognitive needs: No Hearing needs: No Vision needs: Yes Questionnaire PHQ-9 Over the last 2 weeks, how often have you been bothered by any of the following problems? [id number] - PHQ-9 Billing: Patient declined-do not bill Source: Developed by Drs. Juan Dooley, Nadya Oshea, Nico Rothman and colleagues, with an educational renée from [employer]. Thrive Questionnaire Date Thrive assessed: 04/04/23 AUDIT C Alcohol Use Questionnaire (AUDIT-C) 1. How often do you have a drink containing alcohol?: Never 3. How often do you have six or more drinks on one occasion?: Never Total Score: 0 Score Reviewed/Action Taken: Yes SAY-7 AMB Questionnaire SAY-7 Date SAY - 7 assessed: 04/04/23 Source: Developed by Drs. Juan Dooley, Nadya Oshea, Nico Rothman and colleagues, with an educational renée from [employer]. Review of Systems Const Denies chills and Denies fever(s) ENT Denies epistaxis and Denies nasal discharge Card Denies chest pain Resp Denies chest congestion, Denies cough and Denies hemoptysis GI Denies diarrhea and Denies nausea Skin/Breast Denies rash Neuro Reports no additional complaints Psych Reports no additional complaints Endo Reports no additional complaints Physical exam (Primary Care) Vital Signs: Last Vital Signs Pulse 84 05/12/24 09:56 BP 138/80 05/12/24 09:56 Pulse Ox 98 05/12/24 09:56 Oxygen Delivery Method Room Air 05/12/24 09:56 BMI result Body Mass Index 29.4 Tobacco/Smoking Status: Tobacco use Status Tobacco use date assessed 05/12/24 05/12/24 09:58 Patient Tobacco Use Status Former Tobacco user 05/12/24 09:58 Tobacco use type Cigarette 05/12/24 09:58 e-Cigarette/Vaping Use Never Used 05/12/24 09:58 Thrive Assessment: Date of Thrive Assessment Date Thrive assessed 04/04/23 05/12/24 09:58 Const General: cooperative, comfortable and no acute distress Orientation/consciousness: patient oriented x3 HENMT Head: Yes normocephalic Eyes General: appearance normal, both eyes and all related structures Neck Neck: Yes supple Resp Effort & Inspection: normal respiratory effort, no cough and no stridor Cardio Rhythm: regular rhythm Heart sounds: S1 normal heart sound present and S2 normal heart sound present Skin General skin exam: turgor normal Neuro General: patient oriented x3, tone normal and moves all extremities Extrem Right lower extremity: no edema Left lower extremity: no edema Assessment and Plan Assessment & Plan (1) Hypertension, essential: Code(s): I10 - Essential (primary) hypertension (2) Vitamin D deficiency: Code(s): E55.9 - Vitamin D deficiency, unspecified (3) Lipid disorder: Code(s): E78.9 - Disorder of lipoprotein metabolism, unspecified (4) Obesity due to excess calories: Code(s): E66.09 - Other obesity due to excess calories Qualifiers: Obesity classification: adult class 1 (BMI 30 - 34.9) Serious obesity comorbidity presence: with serious comorbidity Body mass index: BMI 31.0-31.9 Qualified Code(s): E66.09 - Other obesity due to excess calories; Z68.31 - Body mass index [BMI] 31.0-31.9, adult (5) Low hemoglobin: Code(s): D64.9 - Anemia, unspecified (6) Paresthesia of lower extremity: Code(s): R20.2 - Paresthesia of skin (7) Balance disorder: Code(s): R26.89 - Other abnormalities of gait and mobility Plan Patient is 79-year-old came today follow-up appointment Patient have chronic balance disorder due to longstanding paresthesia lower extremity Patient does not want have workup done Blood pressure is much better compared to last time. She is on irbesartan hydrochlorothiazide 300-12.5 mg, metoprolol 100 mg and nifedipine ER 90 mg daily We are monitoring her hemoglobin which is running slightly low Continue atorvastatin 10 mg And continue vitamin-D supplement BMI is elevated patient is having difficulty losing weight Patient will return in August, labs to be repeated then. Orders: Orders Comprehensive Met. Panel 2 Months D64.9 - Anemia, unspecified, E55.9 - Vitamin D deficiency, unspecified, E78.9 - Disorder of lipoprotein metabolism, unspecified, I10 - Essential (primary) hypertension, R20.2 - Paresthesia of skin, R26.89 - Other abnormalities of gait and mobility LDL Cholesterol Direct 2 Months D64.9 - Anemia, unspecified, E55.9 - Vitamin D deficiency, unspecified, E78.9 - Disorder of lipoprotein metabolism, unspecified, I10 - Essential (primary) hypertension, R20.2 - Paresthesia of skin, R26.89 - Other abnormalities of gait and mobility Vitamin D 25-OH (D2 and D3) 2 Months D64.9 - Anemia, unspecified, E55.9 - Vitamin D deficiency, unspecified, E78.9 - Disorder of lipoprotein metabolism, unspecified, I10 - Essential (primary) hypertension, R20.2 - Paresthesia of skin, R26.89 - Other abnormalities of gait and mobility Complete Blood Count Auto Diff 2 Months D64.9 - Anemia, unspecified, E55.9 - Vitamin D deficiency, unspecified, E78.9 - Disorder of lipoprotein metabolism, unspecified, I10 - Essential (primary) hypertension, R20.2 - Paresthesia of skin, R26.89 - Other abnormalities of gait and mobility Ferritin 2 Months D64.9 - Anemia, unspecified, E55.9 - Vitamin D deficiency, unspecified, E78.9 - Disorder of lipoprotein metabolism, unspecified, I10 - Essential (primary) hypertension, R20.2 - Paresthesia of skin, R26.89 - Other abnormalities of gait and mobility Coding Level of Care Code Est Pt Level 4 (32173) Complex EM visit Add On [id number] Diagnoses Hypertension, essential I10 Vitamin D deficiency E55.9 Lipid disorder E78.9 Class 1 obesity due to excess calories with serious comorbidity and body mass index (BMI) of 31.0 to 31.9 in adult E66.09; Z68.31 Obesity classification: adult class 1 (BMI 30 - 34.9) Serious obesity comorbidity presence: with serious comorbidity Body mass index: BMI 31.0-31.9 Low hemoglobin D64.9 Paresthesia of lower extremity R20.2 Balance disorder R26.89
== END 2024-05-12 14:39 | disposition home or self-care (01) ==
PROVIDERS: PCP Internal Medicine; Visit Provider Internal Medicine
DX: I10 Essential (primary) hypertension (principal); E55.9 Vitamin D deficiency, unspecified; E78.9 Disorder of lipoprotein metabolism, unspecified; E66.09 Other obesity due to excess calories; Z68.31 Body mass index [BMI] 31.0-31.9, adult; D64.9 Anemia, unspecified; R20.2 Paresthesia of skin; R26.89 Other abnormalities of gait and mobility
CPT/HCPCS: 99214; G2211

== ENCOUNTER 2024-09-15 08:54 | Outpatient (AMB) | payer MEDICARE, SELFPAY ==
[2024-09-15 09:03] VITALS: BP 128/78; PULSE 103; O2SAT 98; BMI 27.2
--- NOTE | 2024-09-15 09:03 | MHC.PC.OV ---
Vital Signs 09/15/24 09:03 Height 5 ft 7 in Weight 173 lb 6 oz BMI 27.2 BP 128/78 Blood Pressure Location Lt brachial Position Sitting Pulse 103 H Pulse Source Pulse Oximeter Pulse Oximetry (%) 98 Oxygen Delivery Method Room Air Intake Visit Reasons: Regular visit Allergies No Known Allergies Allergy (Verified 09/15/24 09:06) Medication List - Last Reconciled 09/15/24 by Silvia Marcial MD atorvastatin 10 mg PO DAILY 90 days [Blood pressure monitor As directed] cholecalciferol (vitamin D3) 25 mcg PO DAILY 90 days irbesartan-hydrochlorothiazide 300-12.5 mg 1 tab PO DAILY metoprolol succinate ER 100 mg PO DAILY 90 days nifedipine ER 90 mg PO DAILY 90 days Tobacco use date assessed: 09/15/24 Fall risk assessment: 1 Fall in past year Last assessed Fall Risk: 09/15/24 Dental Screening Dental Screen Date: 09/15/24 Did you have a dental visit in the last 12 months?: No Did you have a dental problem in the last 6 months where you did not have access to dental care?: No Was dental information given to patient?: No HPI Regular visit HPI Details Patient is 79-year-old came today follow-up appointment She is doing well offer no complaints Last set of lab was January of this year, new set of lab order placed to be done today 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 [facility] Medical History Gastric ulcer Elevated cholesterol HTN (hypertension) Surgical History Hx of colonoscopy History of surgery Social History Housing: Apartment Alcohol intake: current Alcohol intake frequency: 3 or more drinks per day Alcohol type: beer Patient Tobacco Use Status: Former Tobacco user Tobacco use type: Cigarette Years Smoked: 1 e-Cigarette/Vaping Use: Never Used service: No Current occupational status: retired Cognitive needs: No Hearing needs: No Vision needs: Yes Questionnaire PHQ-9 Over the last 2 weeks, how often have you been bothered by any of the following problems? 1. Little interest or pleasure in doing things: not at all 2. Feeling down, depressed, or hopeless: not at all 3. Trouble falling or staying asleep, or sleeping too much: not at all 4. Feeling tired or having little energy: not at all 5. Poor appetite or overeating: not at all 6. Feeling bad about yourself - or that you are a failure or have let yourself or your family down: not at all 7. Trouble concentrating on things, such as reading the newspaper or watching television: not at all 8. Moving or speaking so slowly that other people could have noticed. Or the opposite - being so fidgety or restless that you have been moving around a lot more than usual: not at all 9. Thoughts that you would be better off or of hurting yourself in some way: not at all Total score: 0 Depression Screening Interpretation: Negative Depression Screening Done: Yes 94093 - PHQ-9 Billing: Yes Source: Developed by Drs. Juan Dooley, Nadya Oshea, Nico Rothman and colleagues, with an educational renée from [employer]. Thrive Questionnaire Date Thrive assessed: 09/15/24 I am a: Patient What is your living situation today?: I have a steady place to live Within the past 12 months, did the food you bought not last and you didn't have the money to get more?: Never true Within the past 12 months, did you worry whether your food would run out before you got money to buy more?: Never true Do you have trouble paying for medicines?: No Do you have trouble getting transportation to medical appointments?: No Do you have trouble paying your heating and electricity bill?: No Do you have trouble taking care of your child, family member or friend?: No Do you have trouble with day-to-day activities such as bathing, preparing meals, shopping, managing finances, etc.?: No Are you currently unemployed and looking for a job?: No Are you interested in more education?: No Please select the resources that you would like help with: None Currently or been in a relationship where the following occur: I choose not to answer THRIVE Score: 0 AUDIT C Alcohol Use Questionnaire (AUDIT-C) 1. How often do you have a drink containing alcohol?: Never 3. How often do you have six or more drinks on one occasion?: Never Total Score: 0 Score Reviewed/Action Taken: Yes SAY-7 AMB Questionnaire SAY-7 Date SAY - 7 assessed: 09/15/24 Feeling nervous, anxious, or on edge: 0 = Not at all Not being able to stop or control worryin = Not at all Worrying too much about different things: 0 = Not at all Trouble relaxin = Not at all Being so restless that it is hard to sit still: 0 = Not at all Becoming easily annoyed or irritable: 0 = Not at all Feeling afraid as if something awful might happen: 0 = Not at all Total SAY-7 score (0-4 normal; 5-9 mild; 10-14 moderate; 15-21 severe): 0 Source: Developed by Drs. Juan Dooley, Nadya Oshea, Nico Rothman and colleagues, with an educational renée from [employer]. SAY-7 Assessment Billing SAY-7 Assessment Tool: SAY-7 Assessment 29393 Review of Systems Const Denies chills and Denies fever(s) ENT Denies epistaxis and Denies nasal discharge Card Denies chest pain Resp Denies chest congestion, Denies cough and Denies hemoptysis GI Denies diarrhea and Denies nausea Skin/Breast Denies rash Neuro Reports no additional complaints Psych Reports no additional complaints Endo Reports no additional complaints Physical exam (Primary Care) Vital Signs: Last Vital Signs Pulse 103 H 09/15/24 09:03 BP 128/78 09/15/24 09:03 Pulse Ox 98 09/15/24 09:03 Oxygen Delivery Method Room Air 09/15/24 09:03 BMI result Body Mass Index 27.2 Tobacco/Smoking Status: Tobacco use Status Tobacco use date assessed 09/15/24 09/15/24 09:07 Patient Tobacco Use Status Former Tobacco user 09/15/24 09:07 Tobacco use type Cigarette 09/15/24 09:07 e-Cigarette/Vaping Use Never Used 09/15/24 09:07 PHQ-9: PHQ-9 Score PHQ-9: Total score 0 09/15/24 09:17 Depression Screening Interpretation: Negative Thrive Assessment: Date of Thrive Assessment Date Thrive assessed 09/15/24 09/15/24 09:07 Currently or been in a relationship where the following occur: I choose not to answer Const General: cooperative, comfortable and no acute distress Orientation/consciousness: patient oriented x3 HENMT Head: Yes normocephalic Eyes General: appearance normal, both eyes and all related structures Neck Neck: Yes supple Resp Effort & Inspection: normal respiratory effort, no cough and no stridor Cardio Rhythm: regular rhythm Heart sounds: S1 normal heart sound present and S2 normal heart sound present Skin General skin exam: turgor normal Neuro General: patient oriented x3, tone normal and moves all extremities Extrem Right lower extremity: no edema Left lower extremity: no edema Coding Level of Care Code Est Pt Level 4 (80146) Complex EM visit Add On G2211 Diagnoses Hypertension, essential I10 Balance disorder R26.89 Lipid disorder E78.9 Vitamin D deficiency E55.9 Class 1 obesity due to excess calories with serious comorbidity and body mass index (BMI) of 31.0 to 31.9 in adult E66.09; Z68.31 Body mass index: BMI 31.0-31.9 Obesity classification: adult class 1 (BMI 30 - 34.9) Serious obesity comorbidity presence: with serious comorbidity Additional Codes SAY-7 Assessment Billing - SAY-7 Assessment Tool: SAY-7 Assessment 86322 ([id number]) Assessment & Plan Assessment & Plan (1) Hypertension, essential: Code(s): I10 - Essential (primary) hypertension Category: Medical (2) Balance disorder: Code(s): R26.89 - Other abnormalities of gait and mobility Category: Medical (3) Lipid disorder: Code(s): E78.9 - Disorder of lipoprotein metabolism, unspecified Category: Medical (4) Vitamin D deficiency: Code(s): E55.9 - Vitamin D deficiency, unspecified Category: Medical (5) Obesity due to excess calories: Code(s): E66.09 - Other obesity due to excess calories Category: Medical Qualifiers: Body mass index: BMI 31.0-31.9 Obesity classification: adult class 1 (BMI 30 - 34.9) Serious obesity comorbidity presence: with serious comorbidity Qualified Code(s): E66.09 - Other obesity due to excess calories; Z68.31 - Body mass index [BMI] 31.0-31.9, adult Plan Patient is 79-year-old came today follow-up appointment She is doing well offer no complaints Last set of lab was January of this year, new set of lab order placed to be done today 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 Orders: Orders Complete Blood Count Auto Diff Today E55.9 - Vitamin D deficiency, unspecified, E66.09 - Other obesity due to excess calories, E78.9 - Disorder of lipoprotein metabolism, unspecified, I10 - Essential (primary) hypertension, R26.89 - Other abnormalities of gait and mobility, Z68.31 - Body mass index [BMI] 31.0-31.9, adult Comprehensive [place]. Panel Fast Today E55.9 - Vitamin D deficiency, unspecified, E66.09 - Other obesity due to excess calories, E78.9 - Disorder of lipoprotein metabolism, unspecified, I10 - Essential (primary) hypertension, R26.89 - Other abnormalities of gait and mobility, Z68.31 - Body mass index [BMI] 31.0-31.9, adult Medications: Refilled atorvastatin 10 mg PO DAILY 90 tabs 1RF 90 days E78.9 - Disorder of lipoprotein metabolism, unspecified metoprolol succinate ER 100 mg PO DAILY 90 tabs 1RF 90 days I10 - Essential (primary) hypertension irbesartan-hydrochlorothiazide 300-12.5 mg 1 tab PO DAILY 90 tabs 1RF I10 - Essential (primary) hypertension nifedipine ER 90 mg PO DAILY 90 tabs 1RF 90 days
== END 2024-09-15 10:27 | disposition home or self-care (01) ==
LOC: HO.HMCC 08:54
PROVIDERS: PCP Internal Medicine; Visit Provider Internal Medicine
DX: I10 Essential (primary) hypertension (principal); R26.89 Other abnormalities of gait and mobility; E78.9 Disorder of lipoprotein metabolism, unspecified; E55.9 Vitamin D deficiency, unspecified; E66.09 Other obesity due to excess calories; Z68.31 Body mass index [BMI] 31.0-31.9, adult

== ENCOUNTER → 2024-09-15 08:54 | Outpatient (BNVA) | payer MEDICARE, SELFPAY | PROVIDERS: PCP Internal Medicine; Visit Provider Internal Medicine | DX: I10 Essential (primary) hypertension (principal); R26.89 Other abnormalities of gait and mobility; E78.9 Disorder of lipoprotein metabolism, unspecified; E55.9 Vitamin D deficiency, unspecified; E66.09 Other obesity due to excess calories; Z68.31 Body mass index [BMI] 31.0-31.9, adult | CPT/HCPCS: 96127; 99212 ==

== ENCOUNTER 2025-01-12 09:42 | Outpatient (AMB) | payer MEDICARE, SELFPAY ==
[2025-01-12 09:51] VITALS: BP 156/88; PULSE 114; O2SAT 96; BMI 26.5
--- NOTE | 2025-01-12 09:51 | A.OFFPC_ITS ---
Vital Signs 01/12/25 09:51 Height 5 ft 7 in Weight 169 lb 5 oz BMI 26.5 BP 156/88 H Blood Pressure Location Lt brachial Position Sitting Pulse 114 H Pulse Source Pulse Oximeter Pulse Oximetry (%) 96 Oxygen Delivery Method Room Air Intake Visit Reasons: 4m follow up Allergies No Known Allergies Allergy (Verified 01/12/25 09:54) Medication List - Last Reconciled 01/12/25 by Silvia Marcial MD atorvastatin 10 mg PO DAILY 90 days [Blood pressure monitor As directed] cholecalciferol (vitamin D3) 25 mcg PO DAILY 90 days irbesartan-hydrochlorothiazide 300-12.5 mg 1 tab PO DAILY metoprolol succinate ER 100 mg PO DAILY 90 days nifedipine ER 90 mg PO DAILY 90 days Tobacco use date assessed: 01/12/25 Fall risk assessment: No Falls in past year Last assessed Fall Risk: 01/12/25 Dental Screening Dental Screen Date: 01/12/25 Did you have a dental visit in the last 12 months?: No Did you have a dental problem in the last 6 months where you did not have access to dental care?: No Was dental information given to patient?: Patient declined HPI 4m follow up HPI Details Patient is 79-year-old came today follow-up appointment Patient has ran out of her blood pressure medications and has not taken them in a week her blood pressure is elevated today at 156/88 She does not have any headache or blurring of vision there is no chest pain no shortness a breath All refill sent She is on irbesartan hydrochlorothiazide 300-12.5 mg, metoprolol 100 mg and nifedipine ER 90 mg daily She still has not done labs, last set of lab was done February of last year Reminded patient to do it today she said she is fasting and will have it done after this visit Patient have 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 Has appointment in March for physical exam Review of Systems - General: No fever no chills - Neurological: No headaches no dizziness - Ear nose throat: No sore throat no hearing difficulty no ear pain - Cardiovascular: No syncope, no chest pain, no palpitations - Gastrointestinal: No nausea vomiting or diarrhea - Endocrine: No polyuria polydipsia no heat intolerance - Genitourinary: No dysuria , no blood in urine Physical Exam General: No acute distress HEENT: No acute findings Neck: Supple Respiratory system: Able to talk in full sentences, no audible wheeze cardiovascular: S1-S2 regular in rate and rhythm, no chest pain Gastrointestinal: No pain Extremities: No new findings, no swelling of ankles 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 Skin: Normal turgor PFSH Medical History Gastric ulcer Elevated cholesterol HTN (hypertension) Surgical History Hx of colonoscopy History of surgery Social History Housing: Apartment Alcohol intake: current Alcohol intake frequency: 3 or more drinks per day Alcohol type: beer Patient Tobacco Use Status: Former Tobacco user Tobacco use type: Cigarette Years Smoked: 1 e-Cigarette/Vaping Use: Never Used service: No Current occupational status: retired Cognitive needs: No Hearing needs: No Vision needs: Yes Questionnaire Thrive Questionnaire Date Thrive assessed: 01/12/25 I am a: Patient What is your living situation today?: I have a steady place to live Within the past 12 months, did the food you bought not last and you didn't have the money to get more?: Never true Within the past 12 months, did you worry whether your food would run out before you got money to buy more?: Never true Do you have trouble paying for medicines?: No Do you have trouble getting transportation to medical appointments?: No Do you have trouble paying your heating and electricity bill?: No Do you have trouble taking care of your child, family member or friend?: No Do you have trouble with day-to-day activities such as bathing, preparing meals, shopping, managing finances, etc.?: No Are you currently unemployed and looking for a job?: No Are you interested in more education?: No Please select the resources that you would like help with: None Currently or been in a relationship where the following occur: No concerns reported THRIVE Score: 0 AUDIT C Alcohol Use Questionnaire (AUDIT-C) 1. How often do you have a drink containing alcohol?: Never 3. How often do you have six or more drinks on one occasion?: Never Total Score: 0 Score Reviewed/Action Taken: Yes SAY-7 AMB Questionnaire SAY-7 Date SAY - 7 assessed: 01/12/25 Feeling nervous, anxious, or on edge: 0 = Not at all Not being able to stop or control worryin = Not at all Worrying too much about different things: 0 = Not at all Trouble relaxin = Not at all Being so restless that it is hard to sit still: 0 = Not at all Becoming easily annoyed or irritable: 0 = Not at all Feeling afraid as if something awful might happen: 0 = Not at all Total SAY-7 score (0-4 normal; 5-9 mild; 10-14 moderate; 15-21 severe): 0 Source: Developed by Drs. Juan Dooley, Nadya Oshea, Nico Rothman and colleagues, with an educational renée from [employer]. SAY-7 Assessment Billing SAY-7 Assessment Tool: SAY-7 Assessment 54036 Physical exam (Primary Care) Vital Signs: Last Vital Signs Pulse 114 H 01/12/25 09:51 BP 156/88 H 01/12/25 09:51 Pulse Ox 96 01/12/25 09:51 Oxygen Delivery Method Room Air 01/12/25 09:51 BMI result Body Mass Index 26.5 Tobacco/Smoking Status: Tobacco use Status Tobacco use date assessed 01/12/25 01/12/25 09:55 Patient Tobacco Use Status Former Tobacco user 01/12/25 09:55 Tobacco use type Cigarette 01/12/25 09:55 e-Cigarette/Vaping Use Never Used 01/12/25 09:55 Thrive Assessment: Date of Thrive Assessment Date Thrive assessed 01/12/25 01/12/25 09:55 Currently or been in a relationship where the following occur: No concerns reported Coding Level of Care Code Est Pt Level 4 (84150) Complex EM visit Add On G2211 Diagnoses Hypertension, essential I10 Vitamin D deficiency E55.9 Lipid disorder E78.9 Balance disorder R26.89 Class 1 obesity due to excess calories with serious comorbidity and body mass index (BMI) of 31.0 to 31.9 in adult E66.09; Z68.31 Obesity classification: adult class 1 (BMI 30 - 34.9) Serious obesity comorbidity presence: with serious comorbidity Body mass index: BMI 31.0-31.9 Additional Codes SAY-7 Assessment Billing - SAY-7 Assessment Tool: SAY-7 Assessment 83278 ([id number]) Assessment & Plan Assessment & Plan (1) Hypertension, essential: Code(s): I10 - Essential (primary) hypertension Category: Medical (2) Vitamin D deficiency: Code(s): E55.9 - Vitamin D deficiency, unspecified Category: Medical (3) Lipid disorder: Code(s): E78.9 - Disorder of lipoprotein metabolism, unspecified Category: Medical (4) Balance disorder: Code(s): R26.89 - Other abnormalities of gait and mobility Category: Medical (5) Obesity due to excess calories: Code(s): E66.09 - Other obesity due to excess calories Category: Medical Qualifiers: Obesity classification: adult class 1 (BMI 30 - 34.9) Serious obesity comorbidity presence: with serious comorbidity Body mass index: BMI 31.0-31.9 Qualified Code(s): E66.09 - Other obesity due to excess calories; Z68.31 - Body mass index [BMI] 31.0-31.9, adult Plan Patient is 79-year-old came today follow-up appointment Patient has ran out of her blood pressure medications and has not taken them in a week her blood pressure is elevated today at 156/88 She does not have any headache or blurring of vision there is no chest pain no shortness a breath All refill sent She is on irbesartan hydrochlorothiazide 300-12.5 mg, metoprolol 100 mg and nifedipine ER 90 mg daily She still has not done labs, last set of lab was done February of last year Reminded patient to do it today she said she is fasting and will have it done after this visit Patient have 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 Has appointment in March for physical exam Orders: Orders Vitamin D 25-OH (D2 and D3) Today E55.9 - Vitamin D deficiency, unspecified Lipid Panel Today E55.9 - Vitamin D deficiency, unspecified, E78.9 - Disorder of lipoprotein metabolism, unspecified, I10 - Essential (primary) hypertension Comprehensive [place]. Panel Fast Today E55.9 - Vitamin D deficiency, unspecified, E78.9 - Disorder of lipoprotein metabolism, unspecified, I10 - Essential (primary) hypertension Medications: Refilled cholecalciferol (vitamin D3) 25 mcg PO DAILY 90 caps 3RF 90 days irbesartan-hydrochlorothiazide 300-12.5 mg 1 tab PO DAILY 90 tabs 1RF I10 - Essential (primary) hypertension metoprolol succinate ER 100 mg PO DAILY 90 tabs 1RF 90 days I10 - Essential (primary) hypertension nifedipine ER 90 mg PO DAILY 90 tabs 1RF 90 days atorvastatin 10 mg PO DAILY 90 tabs 1RF 90 days E78.9 - Disorder of lipoprotein metabolism, unspecified
--- OUTSIDE RECORDS SUMMARY | 2025-01-12 11:13 | XMS_ITS | Clinical Summary ---
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 Role Phone Unavailable Primary Care Provider Unavailabl e Social History Tobacco Use Types Packs/Day Years Used Date Smoking Tobacco: Never Assessed Comments Unknown Sex and Gender Information Value Date Recorded Sex Assigned at Not on file Legal Sex Female 6:07 AM EST Gender Identity Not on file Sexual Orientation Not on file Plan of Treatment Health Maintenance Due Date Last Done Comments DTaP,Tdap,and Td Vaccines (1 - Tdap) 1966 Pneumococcal Vaccine: 50+ Ye ars (1 of 1 - PCV) 1997 Zoster Vaccines (1 of 2) 1997 RSV Immunization Patients 60 + Years Old (1 - 1-dose 75+ series) 2022 COVID-19 Vaccine ( - 2023-2 5 season) 2024 Influenza Vaccine (#1) 2024 HIB Vaccines Aged Out No longer eligi ble based on patient's age to complete this topic HPV Vaccines Aged Out No longer eligi ble based on patient's age to complete this topic Hepatitis A Vaccines Aged Out No long er eligible based on patient's age to complete this topic Hepatitis B Vaccines Aged Out No long er eligible based on patient's age to complete this topic IPV Vaccines Aged Out No longer eligi ble based on patient's age to complete this topic MMR Vaccines Aged Out No longer eligi ble based on patient's age to complete this topic Meningococcal ACWY Vaccine Aged Out N o longer eligible based on patient's age to complete this topic Meningococcal B Vacine Aged Out No lo nger eligible based on patient's age to complete this topic RSV Immunization Patients Un delores 20 months Aged Out No longer eligible b ased on patient's age to complete this topic Varicella Vaccines Aged Out No longer eligible based on patient's age to complete this topic
== END 2025-01-12 10:52 | disposition home or self-care (01) ==
PROVIDERS: PCP Internal Medicine; Visit Provider Internal Medicine
DX: I10 Essential (primary) hypertension (principal); E55.9 Vitamin D deficiency, unspecified; E78.9 Disorder of lipoprotein metabolism, unspecified; R26.89 Other abnormalities of gait and mobility; E66.09 Other obesity due to excess calories; Z68.31 Body mass index [BMI] 31.0-31.9, adult

== ENCOUNTER 2025-01-12 09:42 | Outpatient (REF) | payer MEDICARE, SELFPAY ==
--- OUTSIDE RECORDS SUMMARY | 2025-01-12 12:26 | XMS_ITS | Clinical Summary ---
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
[2025-01-12 14:38] LABS: Alanine Aminotransferase 38 U/L (0-31); Albumin Level 3.3 g/dL (3.5-5.0); Alkaline Phosphatase 130 U/L (39-117); Anion Gap 15 (12-20); Aspartate Amino Transferase 93 U/L (5-31); Bilirubin Total 0.5 mg/dL (0.0-1.0); Blood Urea Nitrogen 6 mg/dL (9-16); Calcium 8.4 mg/dL (8.4-10.2); Carbon Dioxide 23 mmol/L (22-29); Chloride 109 mmol/L (96-108); Cholesterol 147 mg/dL (<200); Estimated Glomerular Filt Rate > 60; Glucose Fasting 84 mg/dL (60-99); HDL Cholesterol 90 mg/dL (>40); LDL Cholesterol Calculated 23 mg/dL (<100); Potassium 3.9 mmol/L (3.3-5.1); Sodium 143 mmol/L (135-145); Total Protein 7.6 g/dL (6.5-8.0); Triglycerides 173 mg/dL (<150)
[2025-01-16 13:09] LABS: Vitamin D 25-OH, D2 <4 ng/mL; Vitamin D 25-OH, D3 5 ng/mL; Vitamin D 25-OH, Total 5 ng/mL (30-100)
== END 2025-01-12 09:43 | disposition home or self-care (01) ==
LOC: HO.HMGCLDS 09:42
PROVIDERS: PCP Internal Medicine; Visit Provider Internal Medicine
DX: I10 Essential (primary) hypertension (principal); E55.9 Vitamin D deficiency, unspecified; E78.9 Disorder of lipoprotein metabolism, unspecified; R26.89 Other abnormalities of gait and mobility; E66.09 Other obesity due to excess calories; Z68.31 Body mass index [BMI] 31.0-31.9, adult; Z79.899 Other long term (current) drug therapy
CPT/HCPCS: 36415; 80053; 80061; 82306; 96127; 99212

== ENCOUNTER 2025-04-20 12:39 | Outpatient (AMB) | payer MEDICARE, SELFPAY ==
[2025-04-20 12:42] VITALS: BP 142/76; PULSE 83; O2SAT 93; BMI 27.9
--- NOTE | 2025-04-20 12:42 | A.OFFPC_ITS ---
Vital Signs 04/20/25 12:42 Height 5 ft 7 in Weight 178 lb BMI 27.9 BP 142/76 H Blood Pressure Location Lt brachial Position Sitting Pulse 83 Pulse Source Pulse Oximeter Pulse Oximetry (%) 93 Oxygen Delivery Method Room Air Intake Visit Reasons: Annual PE/ 3 mo f/u - see comments Allergies No Known Allergies Allergy (Verified 04/20/25 12:43) Medication List - Last Reconciled 04/20/25 by Silvia Marcial MD [Blood pressure monitor As directed] cholecalciferol (vitamin D3) 25 mcg PO DAILY 90 days irbesartan-hydrochlorothiazide 300-12.5 mg 1 tab PO DAILY metoprolol succinate ER 100 mg PO DAILY 90 days nifedipine ER 90 mg PO DAILY 90 days Tobacco use date assessed: 01/12/25 Dental Screening Dental Screen Date: 01/12/25 HPI Annual PE/ 3 mo f/u - see comments HPI Details PE apt - The patient is a 80-year-old female wi th a history of hypertension and gait disorder hypertension. - Blood pressure was previously very hig h but has improved; however, it remains slightly elevated at 142 mmHg at present. - The patient does not have headaches or visual blurring. - No at-home blood pressure monitoring s ystem is in place. - No recent history of eye examinations. - The patient is not currently undergoin g mammography , OBGYN visit or colonoscopy due to transportation issues. Patient says that her son is bringing her to appointments and he is working so do not have time She declined to do any preventive care Medical History: - Essential Hypertension - LFT elevation Vitamin-D deficiency Paresthesia of lower extremity Gait disorder Chronic lower extremity edema Social History: - Transportation: The patient relies on her son for transportation, but this is inconsistent as he works. Health Maintenance - Recommended eye examination due to hyp ertension. Mammogram OBGYN visit and colonoscopy declined Medications - Ibisartan - Hydrochlorothiazide - Metoprolol - Nifedipine - Vitamin D supplement for low levels Patient Instructions - An eye examination appointment will be scheduled. - Continue taking prescribed medications as currently taking. - Bloodwork to be completed in-office, n o fasting required beforehand. - Continue Vitamin D supplementation son ly. Review of Systems - General: No fever no chills - Neurological: No headaches no dizzin ess - Ear nose throat: No sore throat no hearing difficulty no ear pain - Cardiovascular: No syncope, no chest pain, no palpitations - Gastrointestinal: No nausea vomiting or diarrhea - Endocrine: No polyuria polydipsia no heat intolerance - Genitourinary: No dysuria - Skin: No new complaints Physical Exam General: Cooperative, healthy appearing, comfortable, no acute distress Orientation: Patient oriented x3 Head: Normal to inspection Ears: Within normal limit visually Nose: Normal external nose present Face and sinus: Normal facial exam Eyes: Appearance normal, extraocular movement intact pupils reactive Neck: Normal visual inspection and supple Respiratory: Normal respiratory effort and able to speak in complete sentences. Clear to auscultation, no stridor Cardiovascular: S1 and S2 RRR, blood pressure is a little bit high, 142 Breast exam benign GI: Normal to inspection. Soft to palpation and nontender Skin: turgor normal, no acute findings Neuro: Patient oriented x3, motor tandem failed Extremities: Chronic 1+ pitting edema bilateral PFSH Medical History Gastric ulcer Elevated cholesterol HTN (hypertension) Surgical History Hx of colonoscopy History of surgery Social History Housing: Apartment Alcohol intake: current Alcohol intake frequency: 3 or more drinks per day Alcohol type: beer Patient Tobacco Use Status: Former Tobacco user Tobacco use type: Cigarette Years Smoked: 1 e-Cigarette/Vaping Use: Never Used service: No Current occupational status: retired Cognitive needs: No Hearing needs: No Vision needs: Yes Questionnaire Thrive Questionnaire Date Thrive assessed: 01/12/25 SAY-7 AMB Questionnaire SAY-7 Date SAY - 7 assessed: 01/12/25 Source: Developed by Drs. Juan Dooley, Nadya Oshea, Nico Rothman and colleagues, with an educational renée from [employer]. Physical exam (Primary Care) Vital Signs: Last Vital Signs Pulse 83 04/20/25 12:42 BP 142/76 H 04/20/25 12:42 Pulse Ox 93 04/20/25 12:42 Oxygen Delivery Method Room Air 04/20/25 12:42 BMI result Body Mass Index 27.9 Tobacco/Smoking Status: Tobacco use Status Tobacco use date assessed 01/12/25 04/20/25 12:44 Patient Tobacco Use Status Former Tobacco user 04/20/25 12:44 Tobacco use type Cigarette 04/20/25 12:44 e-Cigarette/Vaping Use Never Used 04/20/25 12:44 Thrive Assessment: Date of Thrive Assessment Date Thrive assessed 01/12/25 04/20/25 12:44 Coding Level of Care Code Est Pt Level 3 (78194) Est Pt Prev Care >65y(87457) Diagnoses Encounter for general adult medical examination with abnormal findings Z00.01 LFT elevation R79.89 Hypertension, essential I10 Vitamin D deficiency E55.9 Lipid disorder E78.9 Swelling of both lower extremities M79.89 Balance disorder R26.89 Class 1 obesity due to excess calories with serious comorbidity and body mass index (BMI) of 31.0 to 31.9 in adult E66.09; Z68.31 Body mass index: BMI 31.0-31.9 Obesity classification: adult class 1 (BMI 30 - 34.9) Serious obesity comorbidity presence: with serious comorbidity Assessment & Plan Assessment & Plan (1) Encounter for general adult medical examination with abnormal findings: Code(s): Z00.01 - Encounter for general adult medical examination with abnormal findings Category: Medical (2) LFT elevation: Code(s): R79.89 - Other specified abnormal findings of blood chemistry Category: Medical (3) Hypertension, essential: Code(s): I10 - Essential (primary) hypertension Category: Medical (4) Vitamin D deficiency: Code(s): E55.9 - Vitamin D deficiency, unspecified Category: Medical (5) Lipid disorder: Code(s): E78.9 - Disorder of lipoprotein metabolism, unspecified Category: Medical (6) Swelling of both lower extremities: Code(s): M79.89 - Other specified soft tissue disorders Category: Medical (7) Balance disorder: Code(s): R26.89 - Other abnormalities of gait and mobility Category: Medical (8) Obesity due to excess calories: Code(s): E66.09 - Other obesity due to excess calories Category: Medical Qualifiers: Body mass index: BMI 31.0-31.9 Obesity classification: adult class 1 (BMI 30 - 34.9) Serious obesity comorbidity presence: with serious comorbidity Qualified Code(s): E66.09 - Other obesity due to excess calories; Z68.31 - Body mass index [BMI] 31.0-31.9, adult Plan PE apt - The patient is a 80-year-old female with a history of hypertension and gait disorder hypertension. - Blood pressure was previously very high but has improved; however, it remains slightly elevated at 142 mmHg at present. - The patient does not have headaches or visual blurring. - No at-home blood pressure monitoring system is in place. - No recent history of eye examinations. - The patient is not currently undergoing mammography , OBGYN visit or colonoscopy due to transportation issues. Patient says that her son is bringing her to appointments and he is working so do not have time She declined to do any preventive care Medical History: - Essential Hypertension - LFT elevation Vitamin-D deficiency Paresthesia of lower extremity Gait disorder Chronic lower extremity edema Social History: - Transportation: The patient relies on her son for transportation, but this is inconsistent as he works. Health Maintenance - Recommended eye examination due to hypertension. Mammogram OBGYN visit and colonoscopy declined Medications - Ibisartan - Hydrochlorothiazide - Metoprolol - Nifedipine - Vitamin D supplement for low levels Patient Instructions - An eye examination appointment will be scheduled. - Continue taking prescribed medications as currently taking. - Bloodwork to be completed in-office, no fasting required beforehand. - Continue Vitamin D supplementation daily. Orders: Orders Vitamin D 25-OH (D2 and D3) Today E55.9 - Vitamin D deficiency, unspecified, E66.09 - Other obesity due to excess calories, E78.9 - Disorder of lipoprotein metabolism, unspecified, I10 - Essential (primary) hypertension, M79.89 - Other specified soft tissue disorders, R26.89 - Other abnormalities of gait and m obility, R79.89 - Other specified abnormal findings of blood chemistry, Z68.31 - Body mass index [BMI] 31.0-31.9, adult Complete Blood Count Auto Diff Today E55.9 - Vitamin D deficiency, unspecified, E66.09 - Other obesity due to excess calories, E78.9 - Disorder of lipoprotein metabolism, unspecified, I10 - Essential (primary) hypertension, M79.89 - Other specified soft tissue disorders, R26.89 - Other abnormalities of gait and mobility, R79.89 - Other specified abnormal findings of blood chemistry, Z68.31 - Body mass index [BMI] 31.0-31.9, adult Comprehensive Met. Panel Today E55.9 - Vitamin D deficiency, unspecified, E66.09 - Other obesity due to excess calories, E78.9 - Disorder of lipoprotein metabolism, unspecified, I10 - Essential (primary) hypertension, M79.89 - Other specified soft tissue disorders, R26.89 - Other abnormalities of gait and mobility, R79.89 - Other specified abnormal findings of blood chemistry, Z68.31 - Body mass index [BMI] 31.0-31.9, adult LDL Cholesterol Direct Today E55.9 - Vitamin D deficiency, unspecified, E66.09 - Other obesity due to excess calories, E78.9 - Disorder of lipoprotein metabolism, unspecified, I10 - Essential (primary) hypertension, M79.89 - Other specified soft tissue disorders, R26.89 - Other abnormalities of gait and mobility, R79.89 - Other specified abnormal findings of blood chemistry, Z68.31 - Body mass index [BMI] 31.0-31.9, adult
--- OUTSIDE RECORDS SUMMARY | 2025-04-20 13:08 | XMS_ITS | Clinical Summary ---
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 Name Role Phone Unavailable Primary Care Provider [...] Vaccines (1 of 2) 1997 RSV Immunization Adult Patie nts (1 - 1-dose 75+ series) 2022 COVID-19 Vaccine ( - 2023-2 5 season) 2024 Influenza Vaccine (Season Ended) 2025 HIB Vaccines Aged Out No longer eligi [...] age to complete this topic Meningococcal B Vaccine Aged Out No l onger eligible based on patient's age to complete this topic RSV Immunization Patients Un delores 20 months Aged Out No longer eligible b ased on patient's age to complete this topic Varicella Vaccines Aged Out No longer eligible based on patient's age to complete this topic
== END 2025-04-20 13:05 | disposition home or self-care (01) ==
LOC: HO.HMCC 12:39
PROVIDERS: PCP Internal Medicine; Visit Provider Internal Medicine
DX: Z00.01 Encounter for general adult medical examination with abnormal findings (principal); R79.89 Other specified abnormal findings of blood chemistry; I10 Essential (primary) hypertension; E55.9 Vitamin D deficiency, unspecified; E78.9 Disorder of lipoprotein metabolism, unspecified; M79.89 Other specified soft tissue disorders; R26.89 Other abnormalities of gait and mobility; E66.09 Other obesity due to excess calories; Z68.31 Body mass index [BMI] 31.0-31.9, adult

== ENCOUNTER 2025-04-20 12:39 | Outpatient (REF) | payer MEDICARE, SELFPAY ==
[2025-04-20 16:06] LABS: MANUAL DIFF FLAG NO
[2025-04-20 16:16] LABS: Basophils Percent Auto 0.8 % (0-2); Eosinophils Absolute Auto 0.1 X10*3/uL (0.0-0.4); Eosinophils Percent Auto 2.1 % (0-4); Hematocrit 34.4 % (37.0-47.0); Imm Gran Abs Auto 0.02 X10*3/uL (0.00-0.03); Imm Gran Pct Auto 0.4 % (0.0-0.4); Lymphocytes Absolute Auto 1.6 X10*3/uL (1.2-4.9); Lymphocytes Percent Auto 32.7 % (20-40); Mean Corpuscular Hemoglobin 28.3 pg (27.0-33.0); Mean Corpuscular Volume 88.4 fL (80.0-98.0); Mean Platelet Volume 12.2 fL (9.4-12.3); Monocytes Absolute Auto 0.6 X10*3/uL (0.1-1.2); Monocytes Percent Auto 12.6 % (2-11); Neutrophils Absolute Auto 2.5 x10*3/uL (2.0-8.3); Neutrophils Percent Auto 51.4 % (45-73); Platelet Count 304 X10*3/uL (160-400); Red Blood Count 3.89 X10*6/uL (4.20-5.50); Red Cell Distribution Width 13.7 % (11.0-16.0); White Blood Count 4.9 X10*3/uL (4.8-10.8)
[2025-04-20 16:36] LABS: Alanine Aminotransferase 18 U/L (0-31); Alkaline Phosphatase 88 U/L (39-117); Anion Gap 9 (12-20); Aspartate Amino Transferase 29 U/L (5-31); Bilirubin Total 0.4 mg/dL (0.0-1.0); Blood Urea Nitrogen 15 mg/dL (9-16); Carbon Dioxide 27 mmol/L (22-29); Chloride 113 mmol/L (96-108); Estimated Glomerular Filt Rate 48; Glucose Random 84 mg/dL (60-115); Potassium 4.1 mmol/L (3.3-5.1); Sodium 145 mmol/L (135-145); Total Protein 7.6 g/dL (6.5-8.0)
[2025-04-21 08:58] LABS: LDL Cholesterol Direct 85 mg/dL (<100)
[2025-04-27 06:24] LABS: Vitamin D 25-OH, D2 <4 ng/mL; Vitamin D 25-OH, D3 9 ng/mL; Vitamin D 25-OH, Total 9 ng/mL (30-100)
== END 2025-04-20 12:40 | disposition home or self-care (01) ==
LOC: HO.HMGCLDS 12:39
PROVIDERS: PCP Internal Medicine; Visit Provider Internal Medicine
DX: Z00.01 Encounter for general adult medical examination with abnormal findings (principal); R79.89 Other specified abnormal findings of blood chemistry; I10 Essential (primary) hypertension; E55.9 Vitamin D deficiency, unspecified; E78.9 Disorder of lipoprotein metabolism, unspecified; M79.89 Other specified soft tissue disorders; R26.89 Other abnormalities of gait and mobility; E66.09 Other obesity due to excess calories; Z68.31 Body mass index [BMI] 31.0-31.9, adult
CPT/HCPCS: 36415; 80053; 82306; 83721; 85025; 99212; 99397

== ENCOUNTER 2025-07-20 09:43 | Outpatient (AMB) | payer MEDICARE, SELFPAY ==
[2025-07-20 09:54] VITALS: BP 144/80; PULSE 83; O2SAT 98; BMI 27.6
--- NOTE | 2025-07-20 09:54 | A.OFFPC_ITS ---
Vital Signs 07/20/25 09:54 Height 5 ft 7 in Weight 176 lb BMI 27.6 BP 144/80 H Blood Pressure Location Lt brachial Position Sitting Pulse 83 Pulse Source Pulse Oximeter Pulse Oximetry (%) 98 Intake Visit Reasons: 3m follow up Allergies No Known Allergies Allergy (Verified 07/20/25 09:55) Medication List - Last Reconciled 07/20/25 by Silvia Marcial MD [Blood pressure monitor As directed] cholecalciferol (vitamin D3) 50 mcg (2 x 25 mcg (1,000 unit)) PO DAILY 90 days irbesartan-hydrochlorothiazide 300-12.5 mg 1 tab PO DAILY metoprolol succinate ER 100 mg PO DAILY 90 days nifedipine ER 90 mg PO DAILY 90 days Tobacco use date assessed: 01/12/25 Fall risk assessment: No Falls in past year Last assessed Fall Risk: 07/20/25 Dental Screening Dental Screen Date: 01/12/25 HPI 3m follow up HPI Details History The patient is a 80-year-old female presenting with medication refill needs and foot discomfort. Medication Refill for the management of hypertension - The patient requires refills for her b lood pressure medications and atorvastatin. - She expressed a need for these medicat ions to be sent to her pharmacy. Bilateral Foot and Leg Discomfort (Neuropathy): - The patient reports that both her feet get cold at night, which disrupts her sleep. - The discomfort is described as possibl y being related to neuropathy. - She mentioned trying alcohol rubbing f or relief without effective results. 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 - Reports alcohol use, specifically, rub corona alcohol as a trial for foot discomfort. Problem List - Essential Hypertension - Hyperlipidemia - Anemia - Chronic Kidney Disease - Vitamin D Deficiency - Alcoholic Neuropathy Diagnostic results - Labs: - Hemoglobin: 11.0 (indicating s light anemia, stable) - GFR: 48 (indicating kidney function st atus) - Vitamin D levels are low - Electrolytes: Normal - Liver enzymes: Normal Patient Instructions - Start taking the prescribed vitamin D once a week on Sundays. - Avoid alcohol as it may worsen neuropa thy. - Follow up with the pharmacy for medica tion refills. - Return for a follow-up appointment in three months. - start gabapentin 100 mg capsule at [facility] for paresthesia and burning sensation in feet Follow-up 3 months Review of Systems General: No fever no chills neurological: No headaches no dizziness ear nose throat: No sore throat no hearing difficulty no ear pain cardiovascular: No syncope, no chest pain, no palpitations gastrointestinal: No nausea vomiting or diarrhea skin: No new complaints Physical Exam general: No acute distress HEENT: No acute findings neck: Supple respiratory system: Able to talk in full sentences, no audible wheeze no stridor cardiovascular: S1-S2 RRR, blood pressure is a little bit high today, 144/80 gastrointestinal: No pain extremities: Neuropathy in both feet, gets cold at night, affecting sleep 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 x3 motor intact skin: Normal turgor PFSH Medical History Gastric ulcer Elevated cholesterol HTN (hypertension) Surgical History Hx of colonoscopy History of surgery Social History Housing: Apartment Alcohol intake: current Alcohol intake frequency: 3 or more drinks per day Alcohol type: beer Patient Tobacco Use Status: Former Tobacco user Tobacco use type: Cigarette Years Smoked: 1 e-Cigarette/Vaping Use: Never Used service: No Current occupational status: retired Cognitive needs: No Hearing needs: No Vision needs: Yes Questionnaire PHQ-9 Over the last 2 weeks, how often have you been bothered by any of the following problems? 1. Little interest or pleasure in doing things: not at all 2. Feeling down, depressed, or hopeless: not at all 3. Trouble falling or staying asleep, or sleeping too much: not at all 4. Feeling tired or having little energy: not at all 5. Poor appetite or overeating: not at all 6. Feeling bad about yourself - or that you are a failure or have let yourself or your family down: not at all 7. Trouble concentrating on things, such as reading the newspaper or watching television: not at all 8. Moving or speaking so slowly that other people could have noticed. Or the opposite - being so fidgety or restless that you have been moving around a lot more than usual: not at all 9. Thoughts that you would be better off or of hurting yourself in some way: not at all Total score: 0 Depression Screening Interpretation: Negative Depression Screening Done: Yes 33274 - PHQ-9 Billing: Yes Source: Developed by Drs. Juan Dooley, Nadya Oshea, Nico Rothman and colleagues, with an educational renée from [employer]. Thrive Questionnaire Date Thrive assessed: 07/20/25 I am a: Patient What is your living situation today?: I have a steady place to live Within the past 12 months, did the food you bought not last and you didn't have the money to get more?: Never true Within the past 12 months, did you worry whether your food would run out before you got money to buy more?: Never true Do you have trouble paying for medicines?: No Do you have trouble getting transportation to medical appointments?: No Do you have trouble paying your heating and electricity bill?: No Do you have trouble taking care of your child, family member or friend?: No Do you have trouble with day-to-day activities such as bathing, preparing meals, shopping, managing finances, etc.?: No Are you currently unemployed and looking for a job?: No Are you interested in more education?: No Please select the resources that you would like help with: None Currently or been in a relationship where the following occur: No concerns reported THRIVE Score: 0 AUDIT C Alcohol Use Questionnaire (AUDIT-C) 1. How often do you have a drink containing alcohol?: 2-3 times a week 2. How many drinks containing alcohol do you have on a typical day when you are drinking?: 3 or 4 3. How often do you have six or more drinks on one occasion?: Less than monthly Total Score: 5 Score Reviewed/Action Taken: Yes SAY-7 AMB Questionnaire SAY-7 Date SAY - 7 assessed: 07/20/25 Feeling nervous, anxious, or on edge: 0 = Not at all Not being able to stop or control worryin = Not at all Worrying too much about different things: 0 = Not at all Trouble relaxin = Not at all Being so restless that it is hard to sit still: 0 = Not at all Becoming easily annoyed or irritable: 0 = Not at all Feeling afraid as if something awful might happen: 0 = Not at all Total SAY-7 score (0-4 normal; 5-9 mild; 10-14 moderate; 15-21 severe): 0 Source: Developed by Drs. Juan Dooley, Nadya Oshea, Nico Rothman and colleagues, with an educational renée from [employer]. SAY-7 Assessment Billing SAY-7 Assessment Tool: SAY-7 Assessment 02250 Physical exam (Primary Care) Vital Signs: Last Vital Signs Pulse 83 07/20/25 09:54 BP 144/80 H 07/20/25 09:54 Pulse Ox 98 07/20/25 09:54 BMI result Body Mass Index 27.6 Tobacco/Smoking Status: Tobacco use Status Tobacco use date assessed 01/12/25 07/20/25 09:56 Patient Tobacco Use Status Former Tobacco user 07/20/25 09:56 Tobacco use type Cigarette 07/20/25 09:56 e-Cigarette/Vaping Use Never Used 07/20/25 09:56 PHQ-9: PHQ-9 Score PHQ-9: Total score 0 07/20/25 10:53 Depression Screening Interpretation: Negative Thrive Assessment: Date of Thrive Assessment Date Thrive assessed 07/20/25 07/20/25 09:56 Currently or been in a relationship where the following occur: No concerns reported Coding Level of Care Code Est Pt Level 4 (91668) Complex EM visit Add On G2211 Diagnoses Hypertension, essential I10 Lipid disorder E78.9 Class 1 obesity due to excess calories with serious comorbidity and body mass index (BMI) of 31.0 to 31.9 in adult E66.09; Z68.31 Body mass index: BMI 31.0-31.9 Obesity classification: adult class 1 (BMI 30 - 34.9) Serious obesity comorbidity presence: with serious comorbidity Vitamin D deficiency E55.9 Low hemoglobin D64.9 Paresthesia of lower extremity R20.2 Balance disorder R26.89 Alcoholism F10.20 Alcohol cessation counseling Z71.41 Hypertension, essential I10 Additional Codes SAY-7 Assessment Billing - SAY-7 Assessment Tool: SAY-7 Assessment 60459 ([id number]) PHQ-9 - 43820 - PHQ-9 Billing: Yes ([id number]) Time Spent (min) 30 Comment Reviewing chart/labs/pruc-ee-egem with the patient/coordination of care Assessment & Plan Assessment & Plan (1) Hypertension, essential: Code(s): I10 - Essential (primary) hypertension Category: Medical (2) Lipid disorder: Code(s): E78.9 - Disorder of lipoprotein metabolism, unspecified Category: Medical (3) Obesity due to excess calories: Code(s): E66.09 - Other obesity due to excess calories Category: Medical Qualifiers: Body mass index: BMI 31.0-31.9 Obesity classification: adult class 1 (BMI 30 - 34.9) Serious obesity comorbidity presence: with serious comorbidity Qualified Code(s): E66.09 - Other obesity due to excess calories; Z68.31 - Body mass index [BMI] 31.0-31.9, adult (4) Vitamin D deficiency: Code(s): E55.9 - Vitamin D deficiency, unspecified Category: Medical (5) Low hemoglobin: Code(s): D64.9 - Anemia, unspecified Category: Medical (6) Paresthesia of lower extremity: Code(s): R20.2 - Paresthesia of skin Category: Medical (7) Balance disorder: Code(s): R26.89 - Other abnormalities of gait and mobility Category: Medical (8) Alcoholism: Code(s): F10.20 - Alcohol dependence, uncomplicated Category: Medical (9) Alcohol cessation counseling: Code(s): Z71.41 - Alcohol abuse counseling and surveillance of alcoholic Category: Medical (10) Hypertension, essential: Code(s): I10 - Essential (primary) hypertension Category: Medical Plan History The patient is a 80-year-old female presenting with medication refill needs and foot discomfort. Medication Refill for the management of hypertension - The patient requires refills for her blood pressure medications and atorvastatin. - She expressed a need for these medications to be sent to her pharmacy. Bilateral Foot and Leg Discomfort (Neuropathy): - The patient reports that both her feet get cold at night, which disrupts her sleep. - The discomfort is described as possibly being related to neuropathy. - She mentioned trying alcohol rubbing for relief without effective results. 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 - Reports alcohol use, specifically, rubbing alcohol as a trial for foot discomfort. Problem List - Essential Hypertension - Hyperlipidemia - Anemia - Chronic Kidney Disease - Vitamin D Deficiency - Alcoholic Neuropathy Diagnostic results - Labs: - Hemoglobin: 11.0 (indicating slight anemia, stable) - GFR: 48 (indicating kidney function status) - Vitamin D levels are low - Electrolytes: Normal - Liver enzymes: Normal Patient Instructions - Start taking the prescribed vitamin D once a week on Sundays. - Avoid alcohol as it may worsen neuropathy. - Follow up with the pharmacy for medication refills. - Return for a follow-up appointment in three months. - start gabapentin 100 mg capsule at night for paresthesia and burning sensation in feet Follow-up 3 months Orders: Orders Comprehensive Met. Panel Today D64.9 - Anemia, unspecified, E55.9 - Vitamin D deficiency, unspecified, E66.09 - Other obesity due to excess calories, E78.9 - Disorder of lipoprotein metabolism, unspecified, F10.20 - Alcohol dependence, uncomplicated, I10 - Essential (primary) hypertension, R20.2 - Paresthesia of skin, R26.89 - Other abnormalities of gait and mobility, Z68.31 - Body mass index [BMI] 31.0-31.9, adult LDL Cholesterol Direct Today D64.9 - Anemia, unspecified, E55.9 - Vitamin D deficiency, unspecified, E66.09 - Other obesity due to excess calories, E78.9 - Disorder of lipoprotein metabolism, unspecified, F10.20 - Alcohol dependence, uncomplicated, I10 - Essential (primary) hypertension, R20.2 - Paresthesia of skin, R26.89 - Other abnormalities of gait and mobility, Z68.31 - Body mass index [BMI] 31.0-31.9, adult Complete Blood Count Auto Diff Today D64.9 - Anemia, unspecified, E55.9 - Vitamin D deficiency, unspecified, E66.09 - Other obesity due to excess calories, E78.9 - Disorder of lipoprotein metabolism, unspecified, F10.20 - Alcohol dependence, uncomplicated, I10 - Essential (primary) hypertension, R20.2 - Paresthesia of skin, R26.89 - Other abnormalities of gait and mobility, Z68.31 - Body mass index [BMI] 31.0-31.9, adult Vitamin D 25-OH (D2 and D3) Today D64.9 - Anemia, unspecified, E55.9 - Vitamin D deficiency, unspecified, E66.09 - Other obesity due to excess calories, E78.9 - Disorder of lipoprotein metabolism, unspecified, F10.20 - Alcohol dependence, uncomplicated, I10 - Essential (primary) hypertension, R20.2 - Paresthesia of skin, R26.89 - Other abnormalities of gait and mobility, Z68.31 - Body mass index [BMI] 31.0-31.9, adult Vitamin B12 Today D64.9 - Anemia, unspecified, E55.9 - Vitamin D deficiency, unspecified, E66.09 - Other obesity due to excess calories, E78.9 - Disorder of lipoprotein metabolism, unspecified, F10.20 - Alcohol dependence, uncomplicated, I10 - Essential (primary) hypertension, R20.2 - Paresthesia of skin, R26.89 - Other abnormalities of gait and mobility, Z68.31 - Body mass index [BMI] 31.0- 31.9, adult TSH reflex Free T4 Today D64.9 - Anemia, unspecified, E55.9 - Vitamin D deficiency, unspecified, E66.09 - Other obesity due to excess calories, E78.9 - Disorder of lipoprotein metabolism, unspecified, F10.20 - Alcohol dependence, uncomplicated, I10 - Essential (primary) hypertension, R20.2 - Paresthesia of skin, R26.89 - Other abnormalities of gait and mobility, Z68.31 - Body mass index [BMI] 31.0-31.9, adult Medications: New gabapentin 100 mg PO BEDTIME 90 caps 0RF cholecalciferol (vitamin D3) 1,250 mcg PO QWEEK 13 caps 0RF 90 days Refilled nifedipine ER 90 mg PO DAILY 90 tabs 1RF 90 days irbesartan-hydrochlorothiazide 300-12.5 mg 1 tab PO DAILY 90 tabs 1RF I10 - Essential (primary) hypertension atorvastatin 10 mg PO DAILY 90 tabs 1RF 90 days E78.9 - Disorder of lipoprotein metabolism, unspecified metoprolol succinate ER 100 mg PO DAILY 90 tabs 1RF 90 days I10 - Essential (primary) hypertension
--- OUTSIDE RECORDS SUMMARY | 2025-07-20 10:44 | XMS_ITS | Clinical Summary ---
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
== END 2025-07-20 10:09 | disposition home or self-care (01) ==
LOC: HO.HMCC 09:44
PROVIDERS: PCP Internal Medicine; Visit Provider Internal Medicine
DX: I10 Essential (primary) hypertension (principal); F10.20 Alcohol dependence, uncomplicated; E66.09 Other obesity due to excess calories; Z68.31 Body mass index [BMI] 31.0-31.9, adult; E78.9 Disorder of lipoprotein metabolism, unspecified; E55.9 Vitamin D deficiency, unspecified; D64.9 Anemia, unspecified; R20.2 Paresthesia of skin; R26.89 Other abnormalities of gait and mobility; Z71.41 Alcohol abuse counseling and surveillance of alcoholic

== ENCOUNTER → 2025-07-20 09:43 | Outpatient (BNVA) | payer MEDICARE, SELFPAY | PROVIDERS: PCP Internal Medicine; Visit Provider Internal Medicine | DX: I10 Essential (primary) hypertension (principal); E78.9 Disorder of lipoprotein metabolism, unspecified; E66.09 Other obesity due to excess calories; Z68.31 Body mass index [BMI] 31.0-31.9, adult; E55.9 Vitamin D deficiency, unspecified; D64.9 Anemia, unspecified; R20.2 Paresthesia of skin; R26.89 Other abnormalities of gait and mobility; F10.20 Alcohol dependence, uncomplicated; Z71.41 Alcohol abuse counseling and surveillance of alcoholic; Z71.3 Dietary counseling and surveillance | CPT/HCPCS: 96127; 99212 ==

== ENCOUNTER 2025-10-05 09:20 | Outpatient (AMB) | payer MEDICARE, SELFPAY ==
[2025-10-05 09:35] VITALS: BP 144/82; PULSE 110; O2SAT 94; BMI 28.3
--- NOTE | 2025-10-05 09:35 | A.OFFPC_ITS ---
Vital Signs 10/05/25 09:35 Height 5 ft 7 in Weight 181 lb BMI 28.3 BP 144/82 H Blood Pressure Location Lt brachial Position Sitting Pulse 110 H Pulse Source Pulse Oximeter Pulse Oximetry (%) 94 Intake Visit Reasons: 11 weeks f/up Allergies No Known Allergies Allergy (Verified 07/20/25 09:55) Medication List - Last Reconciled 10/05/25 by Silvia Marcial MD atorvastatin 10 mg PO DAILY 90 days [Blood pressure monitor As directed] cholecalciferol (vitamin D3) 50 mcg (2 x 25 mcg (1,000 unit)) PO DAILY 90 days cholecalciferol (vitamin D3) 1,250 mcg PO QWEEK 90 days gabapentin 100 mg PO BEDTIME irbesartan-hydrochlorothiazide 300-12.5 mg 1 tab PO DAILY metoprolol succinate ER 100 mg PO DAILY 90 days nifedipine ER 90 mg PO DAILY 90 days Tobacco use date assessed: 01/12/25 Dental Screening Dental Screen Date: 01/12/25 HPI HPI Comments History of Present Illness Details History of Present Illness The patient is a 80-year-old female presenting for follow-up on chronic conditions including hypertension and peripheral neuropathy. Hypertension: - The patient's blood pressure remains e levated, with a reading of 144/82 mmHg during the visit. - She believes she requires additional b lood pressure medication. - Her current regimen includes irbesarta n, hydrochlorothiazide, and nifedipine. - She does not monitor her blood pressur e at home. Peripheral Neuropathy: - The patient reports persistent burning pain in her foot, which she feels all the time. Anemia: - The patient was noted to be slightly a nemic on blood work performed five months ago. Hyperlipidemia: - The patient is taking atorvastatin 10 mg for cholesterol. At-risk alcohol use: - The patient admits to drinking a small amount of alcohol and has been advised to stop. Medical History: - Hypertension - Hyperlipidemia - Anemia - Peripheral neuropathy, manifesting as foot pain Medications: - Atorvastatin 10 mg for cholesterol - Irbesartan for blood pressure - Hydrochlorothiazide for blood pressure - Nifedipine for blood pressure Social History: - Alcohol use: The patient reports consu salo a small amount of alcohol and has been counseled to stop. Diagnostic Results: - Labs from April due again [facility] Medical History Gastric ulcer Elevated cholesterol HTN (hypertension) Surgical History Hx of colonoscopy History of surgery Social History Housing: Apartment Alcohol intake: current Alcohol intake frequency: 3 or more drinks per day Alcohol type: beer Patient Tobacco Use Status: Former Tobacco user Tobacco use type: Cigarette Years Smoked: 1 e-Cigarette/Vaping Use: Never Used service: No Current occupational status: retired Cognitive needs: No Hearing needs: No Vision needs: Yes Questionnaire Thrive Questionnaire Date Thrive assessed: 07/20/25 SAY-7 AMB Questionnaire SAY-7 Date SAY - 7 assessed: 07/20/25 Source: Developed by Drs. Juan Dooley, Nadya Oshea, Nico Rothman and colleagues, with an educational renée from [employer]. Review of Systems Narrative Review of Systems - Neurological: Reports constant burning pain in the foot. - General: No fever no chills - Ear nose throat: No sore throat no hearing difficulty no ear pain - Cardiovascular: No syncope, no chest pain, no palpitations - Gastrointestinal: No nausea vomiting or diarrhea Physical exam (Primary Care) Vital Signs: Last Vital Signs Pulse 110 H 10/05/25 09:35 BP 144/82 H 10/05/25 09:35 Pulse Ox 94 10/05/25 09:35 BMI result Body Mass Index 28.3 Tobacco/Smoking Status: Tobacco use Status Tobacco use date assessed 01/12/25 10/05/25 09:36 Patient Tobacco Use Status Former Tobacco user 10/05/25 09:36 Tobacco use type Cigarette 10/05/25 09:36 e-Cigarette/Vaping Use Never Used 10/05/25 09:36 Thrive Assessment: Date of Thrive Assessment Date Thrive assessed 07/20/25 10/05/25 09:36 Narrative Physical Exam General: No acute distress HEENT: No acute findings Neck: Supple Respiratory system: Able to talk in full sentences, no audible wheeze Cardiovascular: S1-S2 regular in rate and rhythm Gastrointestinal: No pain Extremities: Burning foot pain 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 intact Skin: Normal turgor Coding Level of Care Code Est Pt Level 4 (96866) Complex EM visit Add On G2211 Diagnoses Hypertension, essential I10 Lipid disorder E78.9 Class 1 obesity due to excess calories with serious comorbidity and body mass index (BMI) of 31.0 to 31.9 in adult E66.09; Z68.31 Obesity classification: adult class 1 (BMI 30 - 34.9) Serious obesity comorbidity presence: with serious comorbidity Body mass index: BMI 31.0-31.9 Vitamin D deficiency E55.9 Low hemoglobin D64.9 Paresthesia of lower extremity R20.2 Balance disorder R26.89 Alcoholism F10.20 Assessment & Plan Assessment & Plan (1) Hypertension, essential: Code(s): I10 - Essential (primary) hypertension Category: Medical (2) Lipid disorder: Code(s): E78.9 - Disorder of lipoprotein metabolism, unspecified Category: Medical (3) Obesity due to excess calories: Code(s): E66.09 - Other obesity due to excess calories Category: Medical Qualifiers: Obesity classification: adult class 1 (BMI 30 - 34.9) Serious obesity comorbidity presence: with serious comorbidity Body mass index: BMI 31.0-31.9 Qualified Code(s): E66.09 - Other obesity due to excess calories; Z68.31 - Body mass index [BMI] 31.0-31.9, adult (4) Vitamin D deficiency: Code(s): E55.9 - Vitamin D deficiency, unspecified Category: Medical (5) Low hemoglobin: Code(s): D64.9 - Anemia, unspecified Category: Medical (6) Paresthesia of lower extremity: Code(s): R20.2 - Paresthesia of skin Category: Medical (7) Balance disorder: Code(s): R26.89 - Other abnormalities of gait and mobility Category: Medical (8) Alcoholism: Code(s): F10.20 - Alcohol dependence, uncomplicated Category: Medical Plan Problem List - Hypertension - Peripheral neuropathy - Anemia - Hyperlipidemia - At-risk alcohol use Plan - An additional medication will be prescribed to improve blood pressure control. Labetalol 100 mg qd added - All current medications, including atorvastatin, irbesartan, hydrochlorothiazide, and nifedipine, will be refilled and sent to the pharmacy. - The patient was instructed to undergo a blood test today to re-evaluate her anemia. - The patient was advised to stop her alcohol consumption. - Follow-up is scheduled in three months. Medications: New labetalol 100 mg PO DAILY 90 tabs 0RF blood pressure Changed From gabapentin 100 mg PO BEDTIME 90 caps 0RF To gabapentin 300 mg PO BEDTIME 90 caps 0RF Refilled atorvastatin 10 mg PO DAILY 90 tabs 1RF 90 days E78.9 - Disorder of lipoprotein metabolism, unspecified nifedipine ER 90 mg PO DAILY 90 tabs 1RF 90 days irbesartan-hydrochlorothiazide 300-12.5 mg 1 tab PO DAILY 90 tabs 1RF I10 - Essential (primary) hypertension cholecalciferol (vitamin D3) 1,250 mcg PO QWEEK 13 caps 0RF 90 days
--- OUTSIDE RECORDS SUMMARY | 2025-10-05 17:14 | XMS_ITS | Clinical Summary ---
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
== END 2025-10-05 09:49 | disposition home or self-care (01) ==
LOC: HO.HMCC 09:20
PROVIDERS: PCP Internal Medicine; Visit Provider Internal Medicine
DX: I10 Essential (primary) hypertension (principal); E78.9 Disorder of lipoprotein metabolism, unspecified; E66.09 Other obesity due to excess calories; Z68.31 Body mass index [BMI] 31.0-31.9, adult; E55.9 Vitamin D deficiency, unspecified; D64.9 Anemia, unspecified; R20.2 Paresthesia of skin; R26.89 Other abnormalities of gait and mobility; F10.20 Alcohol dependence, uncomplicated

== ENCOUNTER 2025-10-05 09:20 | Outpatient (REF) | payer MEDICARE, SELFPAY ==
[2025-10-05 13:13] LABS: MANUAL DIFF FLAG NO
[2025-10-05 13:37] LABS: Hematocrit 37.6 % (37.0-47.0); Hemoglobin 12.1 g/dl (12.0-16.0); Imm Gran Abs Auto 0.01 X10*3/uL (0.00-0.03); Imm Gran Pct Auto 0.3 % (0.0-0.4); Lymphocytes Absolute Auto 1.6 X10*3/uL (1.2-4.9); Mean Corpuscular HGB Conc 32.2 g/dl (31.0-35.0); Mean Corpuscular Hemoglobin 28.7 pg (27.0-33.0); Mean Corpuscular Volume 89.3 fL (80.0-98.0); NRBC Abs Auto 0.000 X10*3/uL (0.0-0.012); NRBC Pct Auto 0.0 /100WBC (0.0-0.2); Platelet Count 291 X10*3/uL (160-400); Red Blood Count 4.21 X10*6/uL (4.20-5.50); White Blood Count 3.8 X10*3/uL (4.8-10.8)
[2025-10-05 14:35] LABS: Vitamin B12 160 pg/mL (200-900)
[2025-10-05 15:41] LABS: Alanine Aminotransferase 14 U/L (0-31); Albumin Level 4.2 g/dL (3.5-5.0); Alkaline Phosphatase 98 U/L (39-117); Anion Gap 13 (12-20); Aspartate Amino Transferase 29 U/L (5-31); Blood Urea Nitrogen 8 mg/dL (9-16); Calcium 9.1 mg/dL (8.4-10.2); Carbon Dioxide 26 mmol/L (22-29); Chloride 107 mmol/L (96-108); Estimated Glomerular Filt Rate > 60; Potassium 4.0 mmol/L (3.3-5.1); Sodium 142 mmol/L (135-145); Total Protein 7.9 g/dL (6.5-8.0)
[2025-10-13 17:23] LABS: Vitamin D 25-OH, D2 <4 ng/mL; Vitamin D 25-OH, D3 36 ng/mL; Vitamin D 25-OH, Total 36 ng/mL (30-100)
== END 2025-10-05 09:21 | disposition home or self-care (01) ==
LOC: HO.HMGCLDS 09:20
PROVIDERS: PCP Internal Medicine; Visit Provider Internal Medicine
DX: I10 Essential (primary) hypertension (principal); G62.9 Polyneuropathy, unspecified; E78.5 Hyperlipidemia, unspecified; E66.09 Other obesity due to excess calories; Z68.31 Body mass index [BMI] 31.0-31.9, adult; E55.9 Vitamin D deficiency, unspecified; D64.9 Anemia, unspecified; R20.2 Paresthesia of skin; R26.89 Other abnormalities of gait and mobility; F10.20 Alcohol dependence, uncomplicated; Z79.899 Other long term (current) drug therapy
CPT/HCPCS: 36415; 80053; 82248; 82306; 82607; 83721; 84443; 85025; 99212